=== PATIENT | female | born 1960 | race American Indian/Alaskan Native ===

== ENCOUNTER 2021-02-02 07:45 | Inpatient (IN) | payer SELFPAY ==
[2021-02-02] MEDS ORDERED: VANCOMYCIN 1,000 MG in SODIUM CHLORIDE 0.9% 500 ML 500 ML IV ONE (07:54)
--- NOTE | 2021-02-02 07:54 | Emergency Department Report ---
ED Fever HPI - General Chief Complaint: Dyspnea/Respdistress Stated Complaint: WEAKNESS, SOB PUI?: Yes Time Seen by Provider: 02/02/21 07:51 Source: patient Exam Limitations: no limitations - History of Present Illness Initial Comments: Chief complaint: Fever shortness of breath weakness HPI: This 60-year-old female with history of insulin-dependent diabetes who presents with fever shortness of breath and weakness for several days. Recently discharged from [facility]. She was hospitalized for kidney infection. History limited due to language barrier. History obtained from EMS. Fever 101 Fahrenheit per EMS. Patient was tachycardic 150s to 160s sinus rhythm according to EMS report. Timing/Duration: other (Has been sick for 2 weeks recently hospitalized) Fever Severity/Quality: greater than 100.5 F ED Review of Systems ROS: Stated complaint: WEAKNESS, SOB Other details as noted in HPI Comment: Unobtainable due to pts medical conditions (History limited due to language barrier) ED Past Medical Hx - Past Medical History Previous Medical History?: Yes Hx Diabetes: Yes - Surgical History Additional Surgical History: Unable to obtain due to language barrier - Social History Smoking Status: Never Smoker Substance Use Type: None - Medications Home Medications: Home Medications Medication Instructions Recorded Confirmed Last Taken Type Ferrous Sulfate [Slow Release Iron 250 mg PO BID 02/02/21 02/02/21 Unknown History 250 MG] Gabapentin [Neurontin] 100 mg PO BID 02/02/21 02/02/21 Unknown History ED Physical Exam - General General appearance: alert, in no apparent distress - Head Head exam: Present: atraumatic, normocephalic - Eye Eye exam: Present: normal appearance - ENT ENT exam: Present: mucous membranes moist - Neck Neck exam: Present: normal inspection, full ROM - Respiratory Respiratory exam: Present: normal lung sounds bilaterally. Absent: respiratory distress, wheezes, rales, rhonchi - Cardiovascular Cardiovascular Exam: Present: normal rhythm, tachycardia, normal heart sounds. Absent: systolic murmur, diastolic murmur, rubs, gallop - GI/Abdominal GI/Abdominal exam: Present: soft, normal bowel sounds. Absent: distended, tenderness, guarding, rebound - Rectal Rectal exam: Present: normal inspection, normal rectal tone, heme (-) stool, other (Brown stool no gross blood) - Extremities Exam Extremities exam: Present: normal inspection - Back Exam Back exam: Present: normal inspection - Neurological Exam Neurological exam: Present: alert - Psychiatric Psychiatric exam: Present: normal affect, normal mood - Skin Skin exam: Present: warm, dry, intact, normal color. Absent: rash ED Course Vital Signs 02/02/21 02/02/21 02/02/21 07:57 08:01 08:06 Temperature 101.3 F H Pulse Rate 144 H Respiratory 45 H Rate Blood Pressure 122/55 131/54 O2 Sat by Pulse 97 100 Oximetry 02/02/21 02/02/21 02/02/21 08:15 08:31 08:45 Temperature Pulse Rate 143 H 136 H 133 H Respiratory 22 44 H 39 H Rate Blood Pressure 116/60 126/61 125/62 O2 Sat by Pulse 97 98 97 Oximetry 02/02/21 02/02/21 02/02/21 09:01 09:15 09:30 Temperature Pulse Rate 133 H 135 H 135 H Respiratory 37 H 35 H 50 H Rate Blood Pressure 130/58 134/61 125/59 O2 Sat by Pulse 96 97 97 Oximetry 02/02/21 02/02/21 02/02/21 09:45 10:00 11:09 Temperature Pulse Rate 131 H 135 H 133 H Respiratory 44 H 33 H 32 H Rate Blood Pressure 122/57 129/60 129/60 O2 Sat by Pulse 96 98 98 Oximetry 02/02/21 02/02/21 02/02/21 11:15 11:30 11:45 Temperature Pulse Rate 130 H 136 H 130 H Respiratory 42 H 24 26 H Rate Blood Pressure 121/61 116/57 128/65 O2 Sat by Pulse 98 100 98 Oximetry 02/02/21 12:00 Temperature Pulse Rate 134 H Respiratory 44 H Rate Blood Pressure 126/100 O2 Sat by Pulse 98 Oximetry ED Medical Decision Making - Lab Data Result diagrams: 02/02/21 08:00 02/02/21 08:00 Laboratory Results - last 24 hr 02/02/21 02/02/21 02/02/21 08:00 08:00 08:00 WBC 6.7 RBC 2.30 L Hgb 5.7 L* Hct 17.9 L* MCV 78 L MCH 25 L MCHC 32 RDW 19.8 H Plt Count 155 Add Manual Diff Complete Total Counted 100 Seg Neuts % (Manual) 70.0 Band Neutrophils % 9.0 Lymphocytes % (Manual) 17.0 Monocytes % (Manual) 3.0 Metamyelocytes % 1.0 Nucleated RBC % Not Reportable Seg Neutrophils # Man 4.7 Band Neutrophils # 0.6 Lymphocytes # (Manual) 1.1 L Abs React Lymphs (Man) 0.0 Monocytes # (Manual) 0.2 Eosinophils # (Manual) 0.0 Basophils # (Manual) 0.0 Metamyelocytes # 0.1 Myelocytes # 0.0 Promyelocytes # 0.0 Blast Cells # 0.0 WBC Morphology Not Reportable Hypersegmented Neuts Not Reportable Hyposegmented Neuts Not Reportable Hypogranular Neuts Not Reportable Smudge Cells Not Reportable Toxic Granulation Not Reportable Toxic Vacuolation Not Reportable Dohle Bodies Not Reportable Pelger-Huet Anomaly Not Reportable Soham Rods Not Reportable Platelet Estimate Consistent w auto Clumped Platelets Not Reportable Plt Clumps, EDTA Not Reportable Large Platelets Not Reportable Giant Platelets Not Reportable Platelet Satelliting Not Reportable Plt Morphology Comment Not Reportable RBC Morphology Not Reportable Dimorphic RBCs Not Reportable Polychromasia Not Reportable Hypochromasia 1+ Poikilocytosis Not Reportable Anisocytosis 1+ Microcytosis Not Reportable Macrocytosis Not Reportable Spherocytes Not Reportable Pappenheimer Bodies Not Reportable Sickle Cells Not Reportable Target Cells Not Reportable Tear Drop Cells 1+ Ovalocytes Not Reportable Helmet Cells Not Reportable Garcia-[place] Bodies Not Reportable [place] Rings Not Reportable [place]ahomy Cells Not Reportable Bite Cells Not Reportable Crenated Cell Not Reportable Elliptocytes Not Reportable Acanthocytes (Spur) Not Reportable Rouleaux Not Reportable Hemoglobin C Crystals Not Reportable Schistocytes Not Reportable Malaria parasites Not Reportable John Bodies Not Reportable Hem Pathologist Commnt No D-Dimer VBG pH Sodium 135 L Potassium 4.2 Chloride 95.0 L Carbon Dioxide 18 L Anion Gap 26 BUN 15 Creatinine 0.9 Estimated GFR > 60 BUN/Creatinine Ratio 17 Glucose 419 H Lactic Acid 3.00 H* Calcium 8.4 Phosphorus Magnesium Ferritin Total Bilirubin 1.20 AST 32 ALT 9 Alkaline Phosphatase 228 H Lactate Dehydrogenase C-Reactive Protein Total Protein 7.3 Albumin 3.2 L Albumin/Globulin Ratio 0.8 Urine Color Urine Turbidity Urine pH Ur Specific Rainbow Urine Protein Urine Glucose (UA) Urine Ketones Urine Blood Urine Nitrite Urine Bilirubin Urine Urobilinogen Ur Leukocyte Esterase Urine WBC (Auto) Urine RBC (Auto) U Epithel Cells (Auto) Urine Mucus 02/02/21 02/02/21 02/02/21 08:00 08:00 08:00 WBC RBC Hgb Hct MCV MCH MCHC RDW Plt Count Add Manual Diff Total Counted Seg Neuts % (Manual) Band Neutrophils % Lymphocytes % (Manual) Monocytes % (Manual) Metamyelocytes % Nucleated RBC % Seg Neutrophils # Man Band Neutrophils # Lymphocytes # (Manual) Abs React Lymphs (Man) Monocytes # (Manual) Eosinophils # (Manual) Basophils # (Manual) Metamyelocytes # Myelocytes # Promyelocytes # Blast Cells # WBC Morphology Hypersegmented Neuts Hyposegmented Neuts Hypogranular Neuts Smudge Cells Toxic Granulation Toxic Vacuolation Dohle Bodies Pelger-Huet Anomaly Soham Rods Platelet Estimate Clumped Platelets Plt Clumps, EDTA Large Platelets Giant Platelets Platelet Satelliting Plt Morphology Comment RBC Morphology Dimorphic RBCs Polychromasia Hypochromasia Poikilocytosis Anisocytosis Microcytosis Macrocytosis Spherocytes Pappenheimer Bodies Sickle Cells Target Cells Tear Drop Cells Ovalocytes Helmet Cells Garcia-[place] Bodies [place] Rings [place] Cells Bite Cells Crenated Cell Elliptocytes Acanthocytes (Spur) Rouleaux Hemoglobin C Crystals Schistocytes Malaria parasites John Bodies Hem Pathologist Commnt D-Dimer > 80322 H VBG pH Sodium Potassium Chloride Carbon Dioxide Anion Gap BUN Creatinine Estimated GFR BUN/Creatinine Ratio Glucose 424 H Lactic Acid Calcium Phosphorus Magnesium Ferritin 65464.0 H Total Bilirubin AST ALT Alkaline Phosphatase Lactate Dehydrogenase 2476 H C-Reactive Protein 34.90 H Total Protein Albumin Albumin/Globulin Ratio Urine Color Urine Turbidity Urine pH Ur Specific Rainbow Urine Protein Urine Glucose (UA) Urine Ketones Urine Blood Urine Nitrite Urine Bilirubin Urine Urobilinogen Ur Leukocyte Esterase Urine WBC (Auto) Urine RBC (Auto) U Epithel Cells (Auto) Urine Mucus 02/02/21 02/02/21 02/02/21 08:00 08:00 11:01 WBC RBC Hgb Hct MCV MCH MCHC RDW Plt Count Add Manual Diff Total Counted Seg Neuts % (Manual) Band Neutrophils % Lymphocytes % (Manual) Monocytes % (Manual) Metamyelocytes % Nucleated RBC % Seg Neutrophils # Man Band Neutrophils # Lymphocytes # (Manual) Abs React Lymphs (Man) Monocytes # (Manual) Eosinophils # (Manual) Basophils # (Manual) Metamyelocytes # Myelocytes # Promyelocytes # Blast Cells # WBC Morphology Hypersegmented Neuts Hyposegmented Neuts Hypogranular Neuts Smudge Cells Toxic Granulation Toxic Vacuolation Dohle Bodies Pelger-Huet Anomaly Soham Rods Platelet Estimate Clumped Platelets Plt Clumps, EDTA Large Platelets Giant Platelets Platelet Satelliting Plt Morphology Comment RBC Morphology Dimorphic RBCs Polychromasia Hypochromasia Poikilocytosis Anisocytosis Microcytosis Macrocytosis Spherocytes Pappenheimer Bodies Sickle Cells Target Cells Tear Drop Cells Ovalocytes Helmet Cells Garcia-[place] Bodies [place] Rings [place] Cells Bite Cells Crenated Cell Elliptocytes Acanthocytes (Spur) Rouleaux Hemoglobin C Crystals Schistocytes Malaria parasites John Bodies Hem Pathologist Commnt D-Dimer VBG pH 7.436 H Sodium Potassium Chloride Carbon Dioxide Anion Gap BUN Creatinine Estimated GFR BUN/Creatinine Ratio Glucose Lactic Acid 2.40 H* Calcium Phosphorus 3.80 Magnesium 1.60 L Ferritin Total Bilirubin AST ALT Alkaline Phosphatase Lactate Dehydrogenase C-Reactive Protein Total Protein Albumin Albumin/Globulin Ratio Urine Color Urine Turbidity Urine pH Ur Specific Rainbow Urine Protein Urine Glucose (UA) Urine Ketones Urine Blood Urine Nitrite Urine Bilirubin Urine Urobilinogen Ur Leukocyte Esterase Urine WBC (Auto) Urine RBC (Auto) U Epithel Cells (Auto) Urine Mucus 02/02/21 Unknown WBC RBC Hgb Hct MCV MCH MCHC RDW Plt Count Add Manual Diff Total Counted Seg Neuts % (Manual) Band Neutrophils % Lymphocytes % (Manual) Monocytes % (Manual) Metamyelocytes % Nucleated RBC % Seg Neutrophils # Man Band Neutrophils # Lymphocytes # (Manual) Abs React Lymphs (Man) Monocytes # (Manual) Eosinophils # (Manual) Basophils # (Manual) Metamyelocytes # Myelocytes # Promyelocytes # Blast Cells # WBC Morphology Hypersegmented Neuts Hyposegmented Neuts Hypogranular Neuts Smudge Cells Toxic Granulation Toxic Vacuolation Dohle Bodies Pelger-Huet Anomaly Soham Rods Platelet Estimate Clumped Platelets Plt Clumps, EDTA Large Platelets Giant Platelets Platelet Satelliting Plt Morphology Comment RBC Morphology Dimorphic RBCs Polychromasia Hypochromasia Poikilocytosis Anisocytosis Microcytosis Macrocytosis Spherocytes Pappenheimer Bodies Sickle Cells Target Cells Tear Drop Cells Ovalocytes Helmet Cells Garcia-[place] Bodies [place] Rings [place] Cells Bite Cells Crenated Cell Elliptocytes Acanthocytes (Spur) Rouleaux Hemoglobin C Crystals Schistocytes Malaria parasites John Bodies Hem Pathologist Commnt D-Dimer VBG pH Sodium Potassium Chloride Carbon Dioxide Anion Gap BUN Creatinine Estimated GFR BUN/Creatinine Ratio Glucose Lactic Acid Calcium Phosphorus Magnesium Ferritin Total Bilirubin AST ALT Alkaline Phosphatase Lactate Dehydrogenase C-Reactive Protein Total Protein Albumin Albumin/Globulin Ratio Urine Color Yellow Urine Turbidity Clear Urine pH 5.0 Ur Specific Rainbow 1.018 Urine Protein 30 mg/dl Urine Glucose (UA) 150 Urine Ketones Neg Urine Blood Sm Urine Nitrite Neg Urine Bilirubin Neg Urine Urobilinogen < 2.0 Ur Leukocyte Esterase Neg Urine WBC (Auto) 5.0 Urine RBC (Auto) 3.0 U Epithel Cells (Auto) < 1.0 Urine Mucus Few - EKG Data 02/02/21 08:02 g EMS EKG Obtained 07 Interpreted by ia Sinus tachycardia rate 150 bpm normal axis normal intervals no ST elevation - Radiology Data Radiology results: report reviewed Patient Name: MELINDA BEE Gender: Female Date of : 1960 Home Phone: Referring Provider: ODESSA SCHUSTER Organization: [facility] Accession Number: [id number] Requested Date: February 02, 2021 07:51 Report Status: Final Requested Procedure: 1 Procedure Description: XR chest 1V ap Modality: XR Findings Reporting MD: John Hester Dictation Time: February 02, 2021 07:30 Head Of Geography: Not available Spring Machine Operator Date: CHEST 1 VIEW INDICATION: fever shortness of breath. COMPARISON: None FINDINGS: SUPPORT DEVICES: None. HEART: Within normal limits. LUNGS/PLEURA: Minimal streaky left basilar/retrocardiac airspace disease with otherwise clear lungs. ADDITIONAL FINDINGS: None. IMPRESSION: 1. Lung findings as above. Signer Name: John Hester MD Signed: 02/02/2021 7:30 AM Workstation Name: [id number] Patient Name: MELINDA BEE Gender: Female Date of : 1960 Home Phone: Referring Provider: ODESSA SCHUSTER Organization: [facility] Accession Number: [id number] Requested Date: February 02, 2021 09:51 Report Status: Final Requested Procedure: 1 Procedure Description: CT angio chest Modality: CT Findings Reporting MD: John Hester Dictation Time: February 02, 2021 12:09 Head Of Geography: Not available Spring Machine Operator Date: CTA chest with contrast INDICATION : Hypoxia elevated D-dimer OMNIPAQUE 350 100ML . TECHNIQUE: Axial imaging performed through the chest, with contrast bolus timing set to maximize opacification of the pulmonary arteries. 3-plane MIP reformatted images were obtained. All CT scans at this location are performed using CT dose reduction for ALARA by means of automated exposure control. 100 mL of intravenous contrast administered. COMPARISON: None FINDINGS: Bolus/PTE: Contrast bolus timing is suboptimal and there is considerable respiratory motion artifact in the lung bases. The subsegmental distribution is not well evaluated. No obvious central PTE identified. Heart and great vessels appear normal. No pathologic adenopathy. Mediastinum: Heart and great vessels appear normal. No pathologic mediastinal adenopathy. Lungs: There is mild streaky left greater than right basilar airspace disease. Upper abdomen: Limited imaging of the upper abdomen shows nothing acute. Bones: There are moderately advanced degenerative changes in the spine with nothing acute. IMPRESSION: 1. Limited exam as outlined above with no obvious central PTE. The segmental and subsegmental distribution are not well evaluated. 2. Mild streaky bibasilar airspace disease. Signer Name: John Hester MD Signed: 02/02/2021 12:09 PM Workstation Name: [id number] - Medical Decision Making Healthcare history pneumonia, sepsis, suspected COVID-19 infection. Urinalysis negative for infection. Admitted to hospital service in fair condition. Significant anemia present. Hemoccult negative stool Critical care attestation.: If time is entered above; I have spent that time in minutes in the direct care of this critically ill patient, excluding procedure time. ED Disposition Clinical Impression: Hospital-acquired pneumonia, Suspected COVID-19 virus infection, Anemia, Sepsis Disposition: ADMITTED INPATIENT Is pt being admited?: Yes Does the pt Need Aspirin: No Condition: Fair Instructions: Bacterial Pneumonia (ED)
[2021-02-02] MEDS ORDERED: VANCOMYCIN PHARMACY TO DOSE IV SCH (08:00)
--- NOTE | 2021-02-02 08:35 | XRay Report ---
CHEST 1 VIEW INDICATION: fever shortness of breath. COMPARISON: None FINDINGS: SUPPORT DEVICES: None. HEART: Within normal limits. LUNGS/PLEURA: Minimal streaky left basilar/retrocardiac airspace disease with otherwise clear lungs. ADDITIONAL FINDINGS: None. IMPRESSION: 1. Lung findings as above. Signer Name: John Hester MD Signed: 02/02/2021 8:30 AM Workstation Name: [id number]
[2021-02-02 08:48] LABS: Mean Corpuscular HGB Conc 32 % (30-34); Mean Corpuscular Volume 78 fl (79-97); Platelet Count 155 K/mm3 (140-440); Red Cell Distribution Width 19.8 % (13.2-15.2)
[2021-02-02 08:55] LABS: Hematocrit 17.9 % (30.3-42.9); Hemoglobin 5.7 gm/dl (10.1-14.3)
[2021-02-02] MEDS ORDERED: SODIUM CHLORIDE 0.9% 1000 ML 1,000 ML IV ONE ×2 (09:00→09:51)
[2021-02-02] MEDS ORDERED: VANCOMYCIN 2,000 MG in SODIUM CHLORIDE 0.9% 500 ML 500 ML IV ONE (09:00)
[2021-02-02] MEDS ORDERED: CEFEPIME/NS 2 GM/100 ML 2 GM/100 ML BAG IV ONE (09:00)
[2021-02-02 09:33] LABS: Alanine Aminotransferase 9 units/L (7-56); Albumin 3.2 g/dL (3.9-5); BUN/Creatinine Ratio 17; Blood Urea Nitrogen 15 mg/dL (7-17); Calcium 8.4 mg/dL (8.4-10.2); Hemolysis Index 0
[2021-02-02 09:34] LABS: C-Reactive Protein 34.9 mg/dL (0.00-1.30)
[2021-02-02 12:14] LABS: Anisocytosis 1+; Band Neutrophils # (Manual) 0.6 K/mm3; Hypochromasia 1+; Platelet Estimate Consistent w Auto; Tear Drop Cells 1+; Total Cells Counted 100
--- NOTE | 2021-02-02 13:13 | Cat Scan Report ---
CTA chest with contrast INDICATION : Hypoxia elevated D-dimer OMNIPAQUE 350 100ML . TECHNIQUE: Axial imaging performed through the chest, with contrast bolus timing set to maximize opa cification of the pulmonary arteries. 3-plane MIP reformatted images were obtained. All CT scans at this location are performed using CT dose reduction for ALARA by means of automated exposure control. 100 mL of intravenous contrast administered. COMPARISON: None FINDINGS: Bolus/PTE: Contrast bolus timing is suboptimal and there is considerable respiratory motion artifact in the lung bases. The subsegmental distribution is not well evaluated. No obvious central PTE ident ified. Heart and great vessels appear normal. No pathologic adenopathy. Mediastinum: Heart and great vessels appear normal. No pathologic mediastinal adenopathy. Lungs: There is mild streaky left greater than right basilar airspace disease. Upper abdomen: Limited imaging of the upper abdomen shows nothing acute. Bones: There are moderately advanced degenerative changes in the spine with nothing acute. IMPRESSION: 1. Limited exam as outlined above with no obvious central PTE. The segmental and subsegmental distrib ution are not well evaluated. 2. Mild streaky bibasilar airspace disease. Signer Name: John Hester MD Signed: 02/02/2021 1:09 PM Workstation Name: [id number]
[2021-02-02 13:41] LABS: Bilirubin,Urine NEG (Negative); Blood,Urine SM (Negative); Color,Urine Yellow (Yellow); Mucus,Urine FEW /HPF; Urobilinogen,Urine < 2.0 mg/dL (<2.0)
[2021-02-02] MEDS ORDERED: ACETAMINOPHEN 325 MG TAB PO PRN (21:04)
[2021-02-02] MEDS ORDERED: ONDANSETRON 4 MG/2 ML INJ IV PRN (21:04)
[2021-02-02] MEDS ORDERED: oxyCODONE /ACETAMINOPHEN 5-325MG TAB PO PRN (21:05)
[2021-02-02] MEDS ORDERED: METOCLOPRAMIDE 10 MG/2 ML INJ IV PRN (21:05)
[2021-02-02] MEDS ORDERED: IPRATROPIUM/ALBUTEROL SULFATE 3 ML AMPUL.NEB IH PRN (21:08)
--- NOTE | 2021-02-02 21:14 | History and Physical Report ---
History of Present Illness Date of examination: 02/02/21 Date of admission: 02/02/21 12:41 Chief complaint: Fever and shortness of breath off-and-on for 2 weeks History of present illness: 60-year-old female with history of diabetes presents with cough intermittent f ever and shortness of breath and weakness for 2 weeks. Patient was discharged from [facility] recently. Patient was apparently admitted for urinary tract infection. When EMS arrived fever was higher than 1 and patient was tachycardic with a heart rate of 150s to 160s. Comfortable color sputum. Shortness of breath is intermittent. Patient is not Covid vaccinated. Language barrier present. No chest pain. No loss of taste or smell. In the emergency room patient fever of 100.7. Patient has past medical history significant for GERD anemia and peripheral neuropathy no nausea or vomiting. No hematemesis or melanotic stools. - Past Medical History Previous Medical History?: Yes Hx Diabetes: Yes - Surgical History Additional Surgical History: Unable to obtain due to language barrier - Social History Smoking Status: Never Smoker Substance Use Type: None - Medications Home Medications: Home Medications Medication Instructions Recorded Confirmed Last Taken Type Ferrous Sulfate [Slow Release Iron 250 mg PO BID 02/02/21 02/02/21 Unknown History 250 MG] Gabapentin [Neurontin] 100 mg PO BID 02/02/21 02/02/21 Unknown History Review of Systems ROS: Constitutional no weight loss or weight gain no fever or chills HEENT no sore throat no post nasal drip no diplopia Neck no neck stiffness no lymph gland enlargement Chest and lungs fever cough and shortness of breath for 2 weeks CVS no chest pain no diaphoresis no palpitations GI no nausea no vomiting no diarrhea Genitourinary system no dysuria no flank pain Musculoskeletal system no muscle pains no joint pains [employer] no syncope no seizures Skin no rash no itching Psychiatric no depression no homicidal or suicidal tendencies Hematologic no lymphedema or bruising Endocrine no polydipsia no polyuria no cold intolerance no heat intolerance Medications and Allergies Allergies Allergy/AdvReac Type Severity Reaction Status Date / Time No Known Allergies Allergy Unverified 02/02/21 08:26 Home Medications Medication Instructions Recorded Confirmed Last Taken Type Ferrous Sulfate [Slow Release Iron 250 mg PO BID 02/02/21 02/02/21 Unknown History 250 MG] Gabapentin [Neurontin] 100 mg PO BID 02/02/21 02/02/21 Unknown History Sucralfate [Carafate] 1 gm PO ACHS 02/02/21 02/02/21 Unknown History Active Meds: Active Medications Acetaminophen (Acetaminophen 325 Mg Tab) 650 mg PO Q4H PRN PRN Reason: Pain MILD(1-3)/Fever >100.5/GOLDMAN Albuterol/Ipratropium (Ipratropium/Albuterol Sulfate 3 Ml Ampul.Neb) 1 ampul IH Q3H PRN PRN Reason: Wheezing Albuterol/Ipratropium (Ipratropium/Albuterol Sulfate 3 Ml Ampul.Neb) 1 ampul IH QIDRT MARY LOU Dexamethasone (Dexamethasone 4 Mg/Ml Vial) 8 mg IV Q24H MARY LOU Famotidine (Famotidine 20 Mg/2 Ml Inj) 20 mg IV BID MARY LOU Gabapentin (Gabapentin 100 Mg Cap) 100 mg PO BID [facility] Heparin Sodium (Porcine) (Heparin 5,000 Unit/1 Ml Vial) 5,000 unit SUB-Q Q12HR [facility] Sodium Chloride (Nacl 0.9% 1000 Ml) 1,000 mls @ 100 mls/hr IV DIRECT MARY LOU Stop: 02/03/21 08:00 Ceftriaxone Sodium (Rocephin/Ns 2 Gm/100 Ml) 2 gm in 100 mls @ 200 mls/hr IV Q24HR MARY LOU; Protocol Azithromycin (Zithromax/Ns) 500 mg in 250 mls @ 250 mls/hr IV Q24H [facility] Metoclopramide HCl (Metoclopramide 10 Mg/2 Ml Inj) 10 mg IV Q6H PRN PRN Reason: Nausea And Vomiting Ondansetron HCl (Ondansetron 4 Mg/2 Ml Inj) 4 mg IV Q3H PRN PRN Reason: Nausea And Vomiting Oxycodone/Acetaminophen (Oxycodone /Acetaminophen 5-325mg Tab) 1 tab PO Q6H PRN PRN Reason: Pain, Moderate (4-6) Sodium Chloride (Sodium Chloride 0.9% 10 Ml Flush Syringe) 10 ml IV BID MARY LOU Sodium Chloride (Sodium Chloride 0.9% 10 Ml Flush Syringe) 10 ml IV PRN PRN PRN Reason: LINE FLUSH Sucralfate (Sucralfate 1 Gm Tab) 1 gm PO [facility] Exam - Constitutional Vitals: Temp Pulse Resp BP Pulse Ox 99.1 F 134 H 18 126/61 99 02/02/21 17:10 02/02/21 17:10 02/02/21 17:10 02/02/21 17:10 02/02/21 17:10 General appearance: Present: mild distress, well-nourished - EENT Eyes: Present: PERRL ENT: hearing intact, clear oral mucosa - Neck Neck: Present: supple, normal ROM - Respiratory Respiratory effort: normal Respiratory: bilateral: CTA, rhonchi (Scattered) - Cardiovascular Heart rate: 78 Rhythm: regular Heart Sounds: Present: S1 & S2. Absent: rub, click - Extremities Extremities: no ischemia, pulses intact, pulses symmetrical, No edema Peripheral Pulses: within normal limits - Abdominal General gastrointestinal: Present: soft, non-tender, non-distended, normal bowel sounds Female genitourinary: Present: normal - Integumentary Integumentary: Present: clear, warm, dry - Musculoskeletal Musculoskeletal: gait normal, strength equal bilaterally - Psychiatric Psychiatric: appropriate mood/affect, intact judgment & insight - Neurologic Neurologic: CNII-XII intact, moves all extremities - Allied Health Allied health notes reviewed: nursing, case management Results - Labs CBC & Chem 7: 02/02/21 08:00 02/02/21 08:00 Labs: Laboratory Last Values WBC 6.7 K/mm3 (4.5-11.0) 02/02/21 08:00 RBC 2.30 M/mm3 (3.65-5.03) L 02/02/21 08:00 Hgb 5.7 gm/dl (10.1-14.3) L* 02/02/21 08:00 Hct 17.9 % (30.3-42.9) L* 02/02/21 08:00 MCV 78 fl (79-97) L 02/02/21 08:00 MCH 25 pg (28-32) L 02/02/21 08:00 MCHC 32 % (30-34) 02/02/21 08:00 RDW 19.8 % (13.2-15.2) H 02/02/21 08:00 Plt Count 155 K/mm3 (140-440) 02/02/21 08:00 Add Manual Diff Complete 02/02/21 08:00 Total Counted 100 02/02/21 08:00 Seg Neuts % (Manual) 70.0 % (40.0-70.0) 02/02/21 08:00 Band Neutrophils % 9.0 % 02/02/21 08:00 Lymphocytes % (Manual) 17.0 % (13.4-35.0) 02/02/21 08:00 Monocytes % (Manual) 3.0 % (0.0-7.3) 02/02/21 08:00 Metamyelocytes % 1.0 % 02/02/21 08:00 Nucleated RBC % Not Reportable 02/02/21 08:00 Seg Neutrophils # Man 4.7 K/mm3 (1.8-7.7) 02/02/21 08:00 Band Neutrophils # 0.6 K/mm3 02/02/21 08:00 Lymphocytes # (Manual) 1.1 K/mm3 (1.2-5.4) L 02/02/21 08:00 Abs React Lymphs (Man) 0.0 K/mm3 02/02/21 08:00 Monocytes # (Manual) 0.2 K/mm3 (0.0-0.8) 02/02/21 08:00 Eosinophils # (Manual) 0.0 K/mm3 (0.0-0.4) 02/02/21 08:00 Basophils # (Manual) 0.0 K/mm3 (0.0-0.1) 02/02/21 08:00 Metamyelocytes # 0.1 K/mm3 02/02/21 08:00 Myelocytes # 0.0 K/mm3 02/02/21 08:00 Promyelocytes # 0.0 K/mm3 02/02/21 08:00 Blast Cells # 0.0 K/mm3 02/02/21 08:00 WBC Morphology Not Reportable 02/02/21 08:00 Hypersegmented Neuts Not Reportable 02/02/21 08:00 Hyposegmented Neuts Not Reportable 02/02/21 08:00 Hypogranular Neuts Not Reportable 02/02/21 08:00 Smudge Cells Not Reportable 02/02/21 08:00 Toxic Granulation Not Reportable 02/02/21 08:00 Toxic Vacuolation Not Reportable 02/02/21 08:00 Dohle Bodies Not Reportable 02/02/21 08:00 Pelger-Huet Anomaly Not Reportable 02/02/21 08:00 Soham Rods Not Reportable 02/02/21 08:00 Platelet Estimate Consistent w auto 02/02/21 08:00 Clumped Platelets Not Reportable 02/02/21 08:00 Plt Clumps, EDTA Not Reportable 02/02/21 08:00 Large Platelets Not Reportable 02/02/21 08:00 Giant Platelets Not Reportable 02/02/21 08:00 Platelet Satelliting Not Reportable 02/02/21 08:00 Plt Morphology Comment Not Reportable 02/02/21 08:00 RBC Morphology Not Reportable 02/02/21 08:00 Dimorphic RBCs Not Reportable 02/02/21 08:00 Polychromasia Not Reportable 02/02/21 08:00 Hypochromasia 1+ 02/02/21 08:00 Poikilocytosis Not Reportable 02/02/21 08:00 Anisocytosis 1+ 02/02/21 08:00 Microcytosis Not Reportable 02/02/21 08:00 Macrocytosis Not Reportable 02/02/21 08:00 Spherocytes Not Reportable 02/02/21 08:00 Pappenheimer Bodies Not Reportable 02/02/21 08:00 Sickle Cells Not Reportable 02/02/21 08:00 Target Cells Not Reportable 02/02/21 08:00 Tear Drop Cells 1+ 02/02/21 08:00 Ovalocytes Not Reportable 02/02/21 08:00 Helmet Cells Not Reportable 02/02/21 08:00 [place] Bodies Not Reportable 02/02/21 08:00 [place] Rings Not Reportable 02/02/21 08:00 Nahomy Cells Not Reportable 02/02/21 08:00 Bite Cells Not Reportable 02/02/21 08:00 Crenated Cell Not Reportable 02/02/21 08:00 Elliptocytes Not Reportable 02/02/21 08:00 Acanthocytes (Spur) Not Reportable 02/02/21 08:00 Rouleaux Not Reportable 02/02/21 08:00 Hemoglobin C Crystals Not Reportable 02/02/21 08:00 Schistocytes Not Reportable 02/02/21 08:00 Malaria parasites Not Reportable 02/02/21 08:00 John Bodies Not Reportable 02/02/21 08:00 Hem Pathologist Commnt No 02/02/21 08:00 D-Dimer > 66557 ng/mlDDU (0-234) H 02/02/21 08:00 VBG pH 7.436 (7.320-7.420) H 02/02/21 08:00 Sodium 135 mmol/L (137-145) L 02/02/21 08:00 Potassium 4.2 mmol/L (3.6-5.0) 02/02/21 08:00 Chloride 95.0 mmol/L (98-107) L 02/02/21 08:00 Carbon Dioxide 18 mmol/L (22-30) L 02/02/21 08:00 Anion Gap 26 mmol/L 02/02/21 08:00 BUN 15 mg/dL (7-17) 02/02/21 08:00 Creatinine 0.9 mg/dL (0.6-1.2) 02/02/21 08:00 Estimated GFR > 60 ml/min 02/02/21 08:00 BUN/Creatinine Ratio 17 % 02/02/21 08:00 Glucose 419 mg/dL (65-100) H 02/02/21 08:00 Glucose 424 mg/dL (65-100) H 02/02/21 08:00 POC Glucose 189 mg/dL (70-105) H 02/02/21 16:21 Lactic Acid 1.80 mmol/L (0.7-2.0) 02/02/21 14:07 Calcium 8.4 mg/dL (8.4-10.2) 02/02/21 08:00 Phosphorus 3.80 mg/dL (2.5-4.5) 02/02/21 08:00 Magnesium 1.60 mg/dL (1.7-2.3) L 02/02/21 08:00 Ferritin 44571.0 ng/mL (10.0-200.0) H 02/02/21 08:00 Total Bilirubin 1.20 mg/dL (0.1-1.2) 02/02/21 08:00 AST 32 units/L (5-40) 02/02/21 08:00 ALT 9 units/L (7-56) 02/02/21 08:00 Alkaline Phosphatase 228 units/L (35-129) H 02/02/21 08:00 Lactate Dehydrogenase 2476 units/L (91-180) H 02/02/21 08:00 C-Reactive Protein 34.90 mg/dL (0.00-1.30) H 02/02/21 08:00 Total Protein 7.3 g/dL (6.3-8.2) 02/02/21 08:00 Albumin 3.2 g/dL (3.9-5) L 02/02/21 08:00 Albumin/Globulin Ratio 0.8 % 02/02/21 08:00 Procalcitonin 20.88 ng/mL (<0.15) 02/02/21 08:00 Urine Color Yellow (Yellow) 02/02/21 Unknown Urine Turbidity Clear (Clear) 02/02/21 Unknown Urine pH 5.0 (5.0-7.0) 02/02/21 Unknown Ur Specific [place] 1.018 (1.003-1.030) 02/02/21 Unknown Urine Protein 30 mg/dl mg/dL (Negative) 02/02/21 Unknown Urine Glucose (UA) 150 mg/dL (Negative) 02/02/21 Unknown Urine Ketones Neg mg/dL (Negative) 02/02/21 Unknown Urine Blood Sm (Negative) 02/02/21 Unknown Urine Nitrite Neg (Negative) 02/02/21 Unknown Urine Bilirubin Neg (Negative) 02/02/21 Unknown Urine Urobilinogen < 2.0 mg/dL (<2.0) 02/02/21 Unknown Ur Leukocyte Esterase Neg (Negative) 02/02/21 Unknown Urine WBC (Auto) 5.0 /HPF (0.0-6.0) 02/02/21 Unknown Urine RBC (Auto) 3.0 /HPF (0.0-6.0) 02/02/21 Unknown U Epithel Cells (Auto) < 1.0 /HPF (0-13.0) 02/02/21 Unknown Urine Mucus Few /HPF 02/02/21 Unknown Coronavirus (PCR) Negative (Negative) 02/02/21 Unknown Short CBC 02/02/21 Range/Units 08:00 WBC 6.7 (4.5-11.0) K/mm3 Hgb 5.7 L* (10.1-14.3) gm/dl Hct 17.9 L* (30.3-42.9) % Plt Count 155 (140-440) K/mm3 BMP 02/02/21 02/02/21 08:00 08:00 Sodium 135 L Potassium 4.2 Chloride 95.0 L Carbon Dioxide 18 L BUN 15 Creatinine 0.9 Glucose 419 H 424 H Calcium 8.4 Liver Function 02/02/21 Range/Units 08:00 Total Bilirubin 1.20 (0.1-1.2) mg/dL AST 32 (5-40) units/L ALT 9 (7-56) units/L Alkaline Phosphatase 228 H (35-129) units/L Albumin 3.2 L (3.9-5) g/dL Urine 02/02/21 Range/Units Unknown Urine Color Yellow (Yellow) Urine pH 5.0 (5.0-7.0) Ur Specific [place] 1.018 (1.003-1.030) Urine Protein 30 mg/dl (Negative) mg/dL Urine Glucose (UA) 150 (Negative) mg/dL Microbiology: Microbiology 02/02/21 08:00 Peripheral/Venous Blood Culture - Preliminary Culture in Progress 02/02/21 08:00 Peripheral/Venous Blood Culture - Preliminary Culture in Progress - Imaging and Cardiology Chest x-ray: report reviewed CT scan - chest: report reviewed Imaging and Cardiology: chest CT angiogram Limited exam as outlined above with no obvious central pulmonary thromboembolism. The segmental and subsegmental distribution are not well evaluated. Mild streaky bibasilar airspace disease Chest x-ray Minimal streaky left basilar/retrocardiac airspace disease with otherwise clear lungs Assessment and Plan Advance Directives: Yes (Full code) VTE prophylaxis?: Chemical Plan of care discussed with patient/family: Yes - Patient Problems (1) SIRS (systemic inflammatory response syndrome) Current Visit: Yes Status: Acute Plan to address problem: Patient has very high inflammatory markers in the form of D-dimer of more than 10,000 ferritin 17,843 LDH 2476 CRP 34.90 and lactic acid of 2.4 which is slightly high Pulmonary thromboembolism was ruled out by CT angiogram. Chest x-ray shows bilateral streaky pneumonia. (2) Bilateral pneumonia Current Visit: Yes Status: Acute Plan to address problem: Patient initiated on IV Zithromax and IV ceftriaxone. Patient has bilateral pneumonia Covid test to rule out coronavirus infection (3) Suspected COVID-19 virus infection Current Visit: Yes Status: Acute Plan to address problem: Coronavirus test PCR pending (4) Severe anemia Current Visit: Yes Status: Acute Plan to address problem: Etiology of anemia is unclear No hematemesis or melanotic stools Transfuse 1 to 2 units of packed red blood cells Anemia work-up in the form of iron studies and B12 and folic acid levels GI work-up (5) Uncontrolled diabetes mellitus Current Visit: Yes Status: Chronic Qualifiers: Diabetes mellitus type: type 2 Plan to address problem: Patient initiated on long-acting insulin and short-acting insulin before each meal along with insulin sliding scale coverage. Check hemoglobin A1c (6) DVT prophylaxis Current Visit: Yes Status: Acute Plan to address problem: On Lovenox and GI prophylaxis
[2021-02-02] MEDS ORDERED: SODIUM CHLORIDE 0.9% 500 ML 500 ML IV ONE (21:15)
[2021-02-02] MEDS ORDERED: SODIUM CHLORIDE 0.9% 1000 ML 1,000 ML IV SCH (21:15)
[2021-02-02] MEDS ORDERED: ALBUTEROL 2.5 MG/3 ML NEBU IH PRN (21:24)
[2021-02-02] MEDS: cefTRIAXone/NS 2 GM/100 ML 2 GM/100 ML BAG IV SCH (21:46)
[2021-02-02] MEDS: HEPARIN 5,000 UNIT/1 ML VIAL SUB-Q SCH (21:49)
[2021-02-02] MEDS: dexAMETHasone 4 MG/ML VIAL IV SCH (21:51)
[2021-02-02] MEDS: FAMOTIDINE 20 MG/2 ML INJ IV SCH (21:54)
[2021-02-02] MEDS: GABAPENTIN 100 MG CAP PO SCH (21:58)
[2021-02-02] MEDS: SUCRALFATE 1 GM TAB PO SCH (21:58)
[2021-02-02] MEDS: AZITHROMYCIN/NS 500 MG/250 ML 500 MG/250 ML BAG IV SCH (22:48)
[2021-02-03] MEDS: IPRATROPIUM/ALBUTEROL SULFATE 3 ML AMPUL.NEB IH SCH ×4 (07:51→21:07)
[2021-02-03] MEDS: SUCRALFATE 1 GM TAB PO SCH ×4 (09:33→21:28)
[2021-02-03] MEDS: HEPARIN 5,000 UNIT/1 ML VIAL SUB-Q SCH ×2 (09:33→21:29)
[2021-02-03] MEDS: FAMOTIDINE 20 MG/2 ML INJ IV SCH ×2 (09:33→21:30)
[2021-02-03] MEDS: GABAPENTIN 100 MG CAP PO SCH ×2 (09:33→21:28)
[2021-02-03 09:49] LABS: Hematocrit 26.8 % (30.3-42.9); Hemoglobin 8.6 gm/dl (10.1-14.3); Mean Corpuscular HGB Conc 32 % (30-34); Mean Corpuscular Volume 83 fl (79-97); Platelet Count 138 K/mm3 (140-440); Red Blood Count 3.22 M/mm3 (3.65-5.03); Red Cell Distribution Width 19.1 % (13.2-15.2)
[2021-02-03] MEDS: INSULIN LISPRO 100 UNIT/ML SUB-Q SCH ×4 (09:49→21:35)
--- NOTE | 2021-02-03 10:38 | Progress Note ---
Subjective Date of service: 02/03/21 Interval history: 60-year-old female with history of diabetes presents with cough intermittent fever and shortness of breath and weakness for 2 weeks. Patient was discharged from [facility] recently. Patient was apparently admitted for urinary tract infection. When EMS arrived fever was higher than 1 and patient was tachycardic with a heart rate of 150s to 160s. Comfortable color sputum. Shortness of breath is intermittent. Patient is not Covid vaccinated. Language barrier present. No chest pain. No loss of taste or smell. In the emergency room patient fever of 100.7. Patient has past medical history significant for GERD anemia and peripheral neuropathy no nausea or vomiting. No hematemesis or melanotic stools. 02/03 awake and alert. Offers no specific complaints. Feels a whole lot better after blood transfusion. She denies any headache or dizziness. Denies chest pain or shortness of breath denies nausea or abdominal pain. Denies melena. Denies using NSAIDs. lab results reviewed. 12 point review of systems is essentially unremarkable except as stated above in the history of present illness Assessment and plan Severe anemia Status post PRBC transfusion Posttransfusion hemoglobin is 8.6 Check stool for occult blood GI consulted/evaluation pending SIRS Inflammatory markers reviewed Tested negative for COVID-19 CTA chest negative for PE Chest x-ray reviewed We will check venous Doppler of lower extremities due to markedly elevated D- dimer We will discontinue Decadron as patient is not hypoxic Type 2 diabetes Check A1c Patient came from [facility] to [place] about 2 [place] ago States she has not taken any diabetes medicine since she came here Initiate insulin sliding scale coverage Fever/tachycardia/-trending down She has been afebrile since last night Heart rate has improved Chest x-ray reviewed CTA chest reviewed Unclear etiology Rule out viral syndrome We will request ID consult DVT prophylaxis Objective - Constitutional Vitals: Vital Signs - 12hr 02/02/21 02/03/21 02/03/21 22:55 01:16 02:40 Temperature 100.7 F H 99 F 98.5 F Pulse Rate 134 H 112 H Pulse Rate [ Anterior Bilateral Throughout] Respiratory 16 18 Rate Respiratory Rate [Anterior Bilateral Throughout] Blood Pressure 123/58 118/63 O2 Sat by Pulse 98 99 Oximetry 02/03/21 02/03/21 02/03/21 02:47 02:55 03:55 Temperature 98.5 F 98.3 F 97.5 F L Pulse Rate 112 H 111 H 106 H Pulse Rate [ Anterior Bilateral Throughout] Respiratory 18 17 16 Rate Respiratory Rate [Anterior Bilateral Throughout] Blood Pressure 104/57 111/65 109/71 O2 Sat by Pulse 99 99 96 Oximetry 02/03/21 02/03/21 02/03/21 04:01 04:25 05:24 Temperature 98.1 F 98.2 F 97.7 F Pulse Rate 103 H 100 H 99 H Pulse Rate [ Anterior Bilateral Throughout] Respiratory 16 18 16 Rate Respiratory Rate [Anterior Bilateral Throughout] Blood Pressure 127/65 124/69 105/63 O2 Sat by Pulse 96 100 99 Oximetry 02/03/21 02/03/21 02/03/21 05:33 05:48 07:51 Temperature 97.5 F L 97.6 F Pulse Rate 100 H 95 H Pulse Rate [ 97 H Anterior Bilateral Throughout] Respiratory 18 18 Rate Respiratory 18 Rate [Anterior Bilateral Throughout] Blood Pressure 119/63 110/58 O2 Sat by Pulse 98 98 Oximetry General appearance: Present: no acute distress - EENT Eyes: PERRL, EOM intact ENT: hearing intact, clear oral mucosa - Neck Neck: supple, normal ROM, no masses or JVD - Respiratory Respiratory effort: normal Respiratory: bilateral: CTA - Cardiovascular Rhythm: regular Heart Sounds: Present: S1 & S2 Extremities: No edema - Gastrointestinal General gastrointestinal: Present: soft, non-tender Rectal Exam: deferred - Integumentary Integumentary: clear - Musculoskeletal Musculoskeletal: strength equal bilaterally - Neurologic Neurologic: no focal deficits - Psychiatric Psychiatric: appropriate mood/affect - Labs CBC & Chem 7: 02/03/21 09:10 02/02/21 08:00 Labs: Abnormal lab results 02/02/21 02/02/21 02/02/21 Range/Units 08:00 11:01 16:21 RBC (3.65-5.03) M/mm3 Hgb (10.1-14.3) gm/dl Hct (30.3-42.9) % MCH (28-32) pg RDW (13.2-15.2) % Plt Count (140-440) K/mm3 Lymphocytes # (Manual) 1.1 L (1.2-5.4) K/mm3 POC Glucose 189 H (70-105) mg/dL Lactic Acid 2.40 H* (0.7-2.0) mmol/L Crossmatch 02/02/21 02/03/21 02/03/21 Range/Units 22:02 00:11 07:51 RBC (3.65-5.03) M/mm3 Hgb (10.1-14.3) gm/dl Hct (30.3-42.9) % MCH (28-32) pg RDW (13.2-15.2) % Plt Count (140-440) K/mm3 Lymphocytes # (Manual) (1.2-5.4) K/mm3 POC Glucose 212 H 297 H (70-105) mg/dL Lactic Acid (0.7-2.0) mmol/L Crossmatch See Detail 02/03/21 Range/Units 09:10 RBC 3.22 L (3.65-5.03) M/mm3 Hgb 8.6 L (10.1-14.3) gm/dl Hct 26.8 L D (30.3-42.9) % MCH 27 L (28-32) pg RDW 19.1 H (13.2-15.2) % Plt Count 138 L (140-440) K/mm3 Lymphocytes # (Manual) (1.2-5.4) K/mm3 POC Glucose (70-105) mg/dL Lactic Acid (0.7-2.0) mmol/L Crossmatch
[2021-02-03] MEDS ORDERED: MAGNESIUM SULFATE 1 GM in SODIUM CHLORIDE 0.9% 50 ML IV ONE (10:42)
[2021-02-03 11:19] LABS: Alanine Aminotransferase 8 units/L (7-56); Albumin 3.1 g/dL (3.9-5); Blood Urea Nitrogen 16 mg/dL (7-17); Calcium 8.9 mg/dL (8.4-10.2); Hemolysis Index 2
[2021-02-03 11:32] LABS: BUN/Creatinine Ratio 23
[2021-02-03 12:35] LABS: % Iron Saturation 70.97 %
[2021-02-03 15:12] LABS: Band Neutrophils # (Manual) 0.2 K/mm3; Hypochromasia Few; Large Platelets Rare; Tear Drop Cells Few; Total Cells Counted 100
[2021-02-03 15:13] LABS: Platelet Estimate Consistent w Auto
--- NOTE | 2021-02-03 17:55 | Consultation ---
History of Present Illness - Reason for Consult Consult date: 02/03/21 Anemia Requesting physician: ROSIE ANDRES - History of Present Illness Ms. Espitia is a 60-year-old woman from [facility] who is brought by her daughter via ambulance due to acute onset of dyspnea and weakness this morning. She was found to be profoundly anemic with a hemoglobin of 5.7, and has been transfused to a hemoglobin of 8.6. GI consultation is obtained for further evaluation. Patient denies any abdominal pain, nausea or vomiting, or GI bleeding. Her bowel movements are irregular and occur after meals generally. There has been no change in this. Patient has been losing weight over the last 2 or 3 months, but the daughter cannot quantify it. Of note, patient was hospitalized at [facility] from December 22 through December 27, and from January 07 through January 142020. During both of these admissions, she was noted to be anemic with a hemoglobin of approximately 6.5 on admission. She was given 1 unit of packed red blood cells in the first admission, and 2 units on the second admission. Stool for occult blood x2 was negative. Iron studies and B12 studies were unremarkable. Her haptoglobin was elevated at greater than 400. She was referred to hematology, and has an appointment with Dr. Jang tomorrow. She was well until approximately 2 or 3 months ago, when she noted intermittent problems with left iliac crest pain. She states that the pain is intense and when she has it, it can last up to 2 days. During the time that she has the pain, she has no appetite. She has also had low-grade fevers with this and was febrile on admission to the ER this time. She notes that she had pain for 2 days prior to this admission. She had fevers during her [facility] admission as well. She has had extensive lab work and imaging. Patient has no prior history of GI bleed or anemia. There is no history of peptic ulcer disease. At discharge from [facility], she was on a proton pump inhibitor as well as Carafate. Past History Past Medical History: anemia Past Surgical History: No surgical history Social history: denies: smoking, alcohol abuse Medications and Allergies Allergies Allergy/AdvReac Type Severity Reaction Status Date / Time No Known Allergies Allergy Unverified 02/02/21 08:26 Home Medications Medication Instructions Recorded Confirmed Last Taken Type Ferrous Sulfate [Slow Release Iron 250 mg PO BID 02/02/21 02/02/21 Unknown History 250 MG] Gabapentin [Neurontin] 100 mg PO BID 02/02/21 02/02/21 Unknown History Sucralfate [Carafate] 1 gm PO ACHS 02/02/21 02/02/21 Unknown History Active Meds: Active Medications Acetaminophen (Acetaminophen 325 Mg Tab) 650 mg PO Q4H PRN PRN Reason: Pain MILD(1-3)/Fever >100.5/GOLDMAN Last Admin: 02/02/21 22:50 Dose: 650 mg Documented by: Albuterol (Albuterol 2.5 Mg/3 Ml Nebu) 2.5 mg IH Q3HRT PRN PRN Reason: Wheezing Albuterol/Ipratropium (Ipratropium/Albuterol Sulfate 3 Ml Ampul.Neb) 1 ampul IH QIDRT [facility] Last Admin: 02/03/21 16:08 Dose: 1 ampul Documented by: Dexamethasone (Dexamethasone 4 Mg/Ml Vial) 8 mg IV Q24H [facility] Last Admin: 02/02/21 21:51 Dose: 8 mg Documented by: Famotidine (Famotidine 20 Mg/2 Ml Inj) 20 mg IV BID [facility] Last Admin: 02/03/21 09:33 Dose: 20 mg Documented by: Gabapentin (Gabapentin 100 Mg Cap) 100 mg PO BID [facility] Last Admin: 02/03/21 09:33 Dose: 100 mg Documented by: Heparin Sodium (Porcine) (Heparin 5,000 Unit/1 Ml Vial) 5,000 unit SUB-Q Q12HR [facility] Last Admin: 02/03/21 09:33 Dose: 5,000 unit Documented by: Ceftriaxone Sodium (Rocephin/Ns 2 Gm/100 Ml) 2 gm in 100 mls @ 200 mls/hr IV Q24H [facility]; Protocol Last Admin: 02/02/21 21:46 Dose: 200 mls/hr Documented by: Azithromycin (Zithromax/Ns) 500 mg in 250 mls @ 250 mls/hr IV Q24H [facility] Last Admin: 02/02/21 22:48 Dose: 250 mls/hr Documented by: Insulin Human Lispro (Insulin Lispro 100 Unit/Ml) 0 unit SUB-Q [facility]; Protocol Last Admin: 02/03/21 17:17 Dose: 8 unit Documented by: Metoclopramide HCl (Metoclopramide 10 Mg/2 Ml Inj) 10 mg IV Q6H PRN PRN Reason: Nausea And Vomiting Ondansetron HCl (Ondansetron 4 Mg/2 Ml Inj) 4 mg IV Q3H PRN PRN Reason: Nausea And Vomiting Oxycodone/Acetaminophen (Oxycodone /Acetaminophen 5-325mg Tab) 1 tab PO Q6H PRN PRN Reason: Pain, Moderate (4-6) Sodium Chloride (Sodium Chloride 0.9% 10 Ml Flush Syringe) 10 ml IV BID [facility] Last Admin: 02/03/21 12:43 Dose: 10 ml Documented by: Sodium Chloride (Sodium Chloride 0.9% 10 Ml Flush Syringe) 10 ml IV PRN PRN PRN Reason: LINE FLUSH Sucralfate (Sucralfate 1 Gm Tab) 1 gm PO ACHS [facility] Last Admin: 02/03/21 17:16 Dose: 1 gm Documented by: Review of Systems All systems: negative (as per HPI) Exam - Constitutional Vitals: Temp Pulse Resp BP Pulse Ox 97.6 F 100 H 18 110/58 98 02/03/21 05:48 02/03/21 16:08 02/03/21 16:08 02/03/21 05:48 02/03/21 09:00 General appearance: Present: no acute distress - EENT Eyes: Present: PERRL, EOM intact ENT: hearing intact - Neck Neck: Present: supple - Respiratory Respiratory effort: normal Respiratory: bilateral: CTA - Cardiovascular Rhythm: regular Heart Sounds: Present: S1 & S2 - Extremities Extremities: No edema - Abdominal General gastrointestinal: Present: soft, non-tender Results - Labs CBC & Chem 7: 02/03/21 09:10 02/03/21 09:10 Labs: Abnormal lab results 02/02/21 02/03/21 02/03/21 Range/Units 22:02 00:11 07:51 RBC (3.65-5.03) M/mm3 Hgb (10.1-14.3) gm/dl Hct (30.3-42.9) % MCH (28-32) pg RDW (13.2-15.2) % Plt Count (140-440) K/mm3 Seg Neuts % (Manual) (40.0-70.0) % Carbon Dioxide (22-30) mmol/L Glucose (65-100) mg/dL POC Glucose 212 H 297 H (70-105) mg/dL Hemoglobin A1c (4-6) % TIBC (250-450) mcg/dL Transferrin (192-382) mg/dl Alkaline Phosphatase (35-129) units/L Total Protein (6.3-8.2) g/dL Albumin (3.9-5) g/dL Vitamin B12 (211-911) pg/mL Crossmatch See Detail 02/03/21 02/03/21 02/03/21 Range/Units 09:10 09:10 09:10 RBC 3.22 L (3.65-5.03) M/mm3 Hgb 8.6 L (10.1-14.3) gm/dl Hct 26.8 L D (30.3-42.9) % MCH 27 L (28-32) pg RDW 19.1 H (13.2-15.2) % Plt Count 138 L (140-440) K/mm3 Seg Neuts % (Manual) 74.0 H (40.0-70.0) % Carbon Dioxide 18 L (22-30) mmol/L Glucose 364 H (65-100) mg/dL POC Glucose (70-105) mg/dL Hemoglobin A1c (4-6) % TIBC 155 L (250-450) mcg/dL Transferrin 116 L (192-382) mg/dl Alkaline Phosphatase 224 H (35-129) units/L Total Protein 6.2 L (6.3-8.2) g/dL Albumin 3.1 L (3.9-5) g/dL Vitamin B12 (211-911) pg/mL Crossmatch 02/03/21 02/03/21 02/03/21 Range/Units 09:10 09:10 10:45 RBC (3.65-5.03) M/mm3 Hgb (10.1-14.3) gm/dl Hct (30.3-42.9) % MCH (28-32) pg RDW (13.2-15.2) % Plt Count (140-440) K/mm3 Seg Neuts % (Manual) (40.0-70.0) % Carbon Dioxide (22-30) mmol/L Glucose (65-100) mg/dL POC Glucose 401 H (70-105) mg/dL Hemoglobin A1c 7.0 H (4-6) % TIBC (250-450) mcg/dL Transferrin (192-382) mg/dl Alkaline Phosphatase (35-129) units/L Total Protein (6.3-8.2) g/dL Albumin (3.9-5) g/dL Vitamin B12 1010 H (211-911) pg/mL Crossmatch 02/03/21 Range/Units 15:29 RBC (3.65-5.03) M/mm3 Hgb (10.1-14.3) gm/dl Hct (30.3-42.9) % MCH (28-32) pg RDW (13.2-15.2) % Plt Count (140-440) K/mm3 Seg Neuts % (Manual) (40.0-70.0) % Carbon Dioxide (22-30) mmol/L Glucose (65-100) mg/dL POC Glucose 328 H (70-105) mg/dL Hemoglobin A1c (4-6) % TIBC (250-450) mcg/dL Transferrin (192-382) mg/dl Alkaline Phosphatase (35-129) units/L Total Protein (6.3-8.2) g/dL Albumin (3.9-5) g/dL Vitamin B12 (211-911) pg/mL Crossmatch Assessment and Plan 1. Anemia -etiology is unclear. This is normocytic and normochromic. Her iron saturation here is 71% and that [facility] was over 40%. The ferritin level is markedly elevated here at over 17,800, and it was greater than 1000 at [facility]. I believe the anemia is part of a systemic process and associated with her fevers as well as the left lower back pain. There does not appear to be a GI process with blood loss to account for her anemia. -Agree with ID evaluation and review -Would also want hematologic evaluation. Patient has appointment tomorrow but will likely need to reschedule it. If inpatient consultation is available, it may be beneficial. -No plans for endoscopic evaluation at present unless there is evidence of GI blood loss. -Can recheck stool for occult blood.
[2021-02-03] MEDS: cefTRIAXone/NS 2 GM/100 ML 2 GM/100 ML BAG IV SCH (21:23)
[2021-02-03] MEDS: dexAMETHasone 4 MG/ML VIAL IV SCH (21:29)
[2021-02-03] MEDS: AZITHROMYCIN/NS 500 MG/250 ML 500 MG/250 ML BAG IV SCH (22:43)
[2021-02-04 06:18] LABS: Hematocrit 22.5 % (30.3-42.9); Hemoglobin 7.3 gm/dl (10.1-14.3); Mean Corpuscular HGB Conc 32 % (30-34); Mean Corpuscular Volume 82 fl (79-97); Platelet Count 120 K/mm3 (140-440); Red Blood Count 2.75 M/mm3 (3.65-5.03); Red Cell Distribution Width 18.9 % (13.2-15.2)
[2021-02-04 06:39] LABS: Alanine Aminotransferase 12 units/L (7-56); Blood Urea Nitrogen 18 mg/dL (7-17); Calcium 8.8 mg/dL (8.4-10.2); Hemolysis Index 0
[2021-02-04 06:43] LABS: BUN/Creatinine Ratio 30
[2021-02-04] MEDS: IPRATROPIUM/ALBUTEROL SULFATE 3 ML AMPUL.NEB IH SCH (08:08)
--- NOTE | 2021-02-04 10:05 | Progress Note ---
Subjective Date of service: 02/04/21 Interval history: 60-year-old female with history of diabetes presents with cough intermittent fever and shortness of breath and weakness for 2 weeks. Patient was discharged from [facility] recently. Patient was apparently admitted for urinary tract infection. When EMS arrived fever was higher than 1 and patient was tachycardic with a heart rate of 150s to 160s. Comfortable color sputum. Shortness of breath is intermittent. Patient is not Covid vaccinated. Language barrier present. No chest pain. No loss of taste or smell. In the emergency room patient fever of 100.7. Patient has past medical history significant for GERD anemia and peripheral neuropathy no nausea or vomiting. No hematemesis or melanotic stools. 02/03 awake and alert. Offers no specific complaints. Feels a whole lot better after blood transfusion. She denies any headache or dizziness. Denies chest pain or shortness of breath denies nausea or abdominal pain. Denies melena. Denies using NSAIDs. lab results reviewed. 12 point review of systems is essentially unremarkable except as stated above in the history of present illness Assessment and plan Severe anemia-recurrent Status post PRBC transfusion Posttransfusion hemoglobin 8.6 -down to 7.3 this morning Check stool for occult blood GI consulted and note reviewed and appreciated I discussed over the phone with Dr. Marcelo as patient apparently had an appointment today to see him He recommended peripheral smear to be seen by pathologist,(to rule out hemophagocytosis syndrome), also recommended to check uric acid, haptoglobin and reticulocyte count and SPEP He also is willing to see her once she is discharged SIRS Inflammatory markers reviewed-severely elevated D-dimer, CRP, LDH and ferritin Procalcitonin is markedly elevated Tested negative for COVID-19 CTA chest negative for PE Chest x-ray reviewed We will check venous Doppler of lower extremities due to markedly elevated D- dimer We will discontinue Decadron as patient is not hypoxic We will also discontinue neb treatments as the patient denies any shortness of breath Type 2 diabetes A1c A1C 7.0 Patient came from [facility] to this country about 2 months ago States she has not taken any diabetes medicine since she came here cont. insulin sliding scale coverage Fever/tachycardia/-improved She has been afebrile since yesterday Heart rate has improved Chest x-ray reviewed CTA chest reviewed Unclear etiology Rule out viral syndrome ID consulted -evaluation pending DVT prophylaxis We will discontinue subcu heparin as the platelets are trending down SCDs Objective - Constitutional Vitals: Vital Signs - 12hr 02/03/21 02/04/21 22:02 05:02 Temperature 98.0 F 98.5 F Pulse Rate 119 H 91 H Respiratory 20 16 Rate Blood Pressure 136/65 151/80 O2 Sat by Pulse 100 99 Oximetry General appearance: Present: no acute distress - EENT Eyes: PERRL, EOM intact ENT: hearing intact, clear oral mucosa - Neck Neck: supple, normal ROM - Respiratory Respiratory effort: normal Respiratory: bilateral: CTA - Cardiovascular Rhythm: regular Heart Sounds: Present: S1 & S2 Extremities: No edema - Gastrointestinal General gastrointestinal: Present: soft, non-tender Rectal Exam: deferred - Integumentary Integumentary: clear - Musculoskeletal Musculoskeletal: strength equal bilaterally - Neurologic Neurologic: no focal deficits - Psychiatric Psychiatric: appropriate mood/affect - Labs CBC & Chem 7: 02/04/21 04:39 02/04/21 04:39 Labs: Abnormal lab results 02/03/21 02/03/21 02/03/21 Range/Units 09:10 09:10 09:10 RBC 3.22 L (3.65-5.03) M/mm3 Hgb 8.6 L (10.1-14.3) gm/dl Hct 26.8 L D (30.3-42.9) % MCH 27 L (28-32) pg RDW 19.1 H (13.2-15.2) % Plt Count 138 L (140-440) K/mm3 Seg Neuts % (Manual) 74.0 H (40.0-70.0) % Percent Retic (0.78-2.58) % Carbon Dioxide 18 L (22-30) mmol/L BUN (7-17) mg/dL Glucose 364 H (65-100) mg/dL POC Glucose (70-105) mg/dL Hemoglobin A1c (4-6) % Uric Acid (3.5-7.6) mg/dL TIBC 155 L (250-450) mcg/dL Transferrin 116 L (192-382) mg/dl Alkaline Phosphatase 224 H (35-129) units/L Total Protein 6.2 L (6.3-8.2) g/dL Albumin 3.1 L (3.9-5) g/dL Vitamin B12 (211-911) pg/mL 02/03/21 02/03/21 02/03/21 Range/Units 09:10 09:10 10:45 RBC (3.65-5.03) M/mm3 Hgb (10.1-14.3) gm/dl Hct (30.3-42.9) % MCH (28-32) pg RDW (13.2-15.2) % Plt Count (140-440) K/mm3 Seg Neuts % (Manual) (40.0-70.0) % Percent Retic (0.78-2.58) % Carbon Dioxide (22-30) mmol/L BUN (7-17) mg/dL Glucose (65-100) mg/dL POC Glucose 401 H (70-105) mg/dL Hemoglobin A1c 7.0 H (4-6) % Uric Acid (3.5-7.6) mg/dL TIBC (250-450) mcg/dL Transferrin (192-382) mg/dl Alkaline Phosphatase (35-129) units/L Total Protein (6.3-8.2) g/dL Albumin (3.9-5) g/dL Vitamin B12 1010 H (211-911) pg/mL 02/03/21 02/03/21 02/04/21 Range/Units 15:29 21:18 04:39 RBC 2.75 L (3.65-5.03) M/mm3 Hgb 7.3 L (10.1-14.3) gm/dl Hct 22.5 L (30.3-42.9) % MCH 27 L (28-32) pg RDW 18.9 H (13.2-15.2) % Plt Count 120 L (140-440) K/mm3 Seg Neuts % (Manual) (40.0-70.0) % Percent Retic (0.78-2.58) % Carbon Dioxide (22-30) mmol/L BUN (7-17) mg/dL Glucose (65-100) mg/dL POC Glucose 328 H 359 H (70-105) mg/dL Hemoglobin A1c (4-6) % Uric Acid (3.5-7.6) mg/dL TIBC (250-450) mcg/dL Transferrin (192-382) mg/dl Alkaline Phosphatase (35-129) units/L Total Protein (6.3-8.2) g/dL Albumin (3.9-5) g/dL Vitamin B12 (211-911) pg/mL 02/04/21 02/04/21 02/04/21 Range/Units 04:39 09:12 09:12 RBC (3.65-5.03) M/mm3 Hgb (10.1-14.3) gm/dl Hct (30.3-42.9) % MCH (28-32) pg RDW (13.2-15.2) % Plt Count (140-440) K/mm3 Seg Neuts % (Manual) (40.0-70.0) % Percent Retic 0.29 L (0.78-2.58) % Carbon Dioxide 18 L (22-30) mmol/L BUN 18 H (7-17) mg/dL Glucose 400 H (65-100) mg/dL POC Glucose (70-105) mg/dL Hemoglobin A1c (4-6) % Uric Acid 3.4 L (3.5-7.6) mg/dL TIBC (250-450) mcg/dL Transferrin (192-382) mg/dl Alkaline Phosphatase 184 H (35-129) units/L Total Protein (6.3-8.2) g/dL Albumin 3.0 L (3.9-5) g/dL Vitamin B12 (211-911) pg/mL
[2021-02-04] MEDS: SUCRALFATE 1 GM TAB PO SCH ×4 (10:08→21:24)
[2021-02-04] MEDS: INSULIN LISPRO 100 UNIT/ML SUB-Q SCH ×4 (10:09→22:36)
[2021-02-04] MEDS: GABAPENTIN 100 MG CAP PO SCH ×2 (10:09→21:24)
[2021-02-04] MEDS: FAMOTIDINE 20 MG TAB PO SCH ×2 (10:10→21:24)
--- NOTE | 2021-02-04 11:48 | Vascular Lab Report ---
DUPLEX DOPPLER LOWER EXTREMITY VEINS, BILATERAL INDICATION / CLINICAL INFORMATION: high d dimer. TECHNIQUE: Duplex doppler imaging was performed through the veins of both lower extremities using wilda ous compression and other maneuvers. COMPARISON: None available. FINDINGS: RIGHT COMMON FEMORAL VEIN: Negative. RIGHT FEMORAL VEIN: Negative. RIGHT POPLITEAL VEIN: Negative. RIGHT CALF VEINS: Negative. LEFT COMMON FEMORAL VEIN: Negative. LEFT FEMORAL VEIN: Negative. LEFT POPLITEAL VEIN: Negative. LEFT CALF VEINS: Negative. ADDITIONAL FINDINGS: None. IMPRESSION: 1. No sonographic evidence for DVT in either lower extremity. Scribed by: Odalys Mathis RDMS, RVT Scribed: 02/04/2021 10:41 AM I have reviewed the images, agree with this report, and edited this report as needed. Signer Name: Francisco Javier Plascencia MD Signed: 02/04/2021 11:43 AM Workstation Name: [id number]
[2021-02-04 12:40] LABS: Total Cells Counted 100
--- NOTE | 2021-02-04 12:40 | Consultation ---
History of Present Illness - Reason for Consult Consult date: 02/04/21 Fever, sepsis Requesting physician: CHRIS CASEY - History of Present Illness The patient is a 60-year-old female with diabetes mellitus admitted to the hospital with cough, intermittent fever and shortness of breath going on for 2 weeks. Patient is originally from [facility]. Upon evaluation here, T-max was 101.3F. She was noted to have severe anemia requiring blood transfusion. CTA here did not reveal any PE or evidence of pneumonia. No evidence of mediastinal lymphadenopathy. D-dimer greater than 10K, uncontrolled diabetes, ferritin 40948, LDH 2476, CRP 34.9, procalcitonin 20.88 Patient was recently hospitalized at [facility] from 01/07/2021 to 01/14/2021 with high-grade intermittent fevers and lower back pain, CT scan revealed evidence of pyelonephritis for which she was seen by infectious diseases there and treated with IV antibiotics, discharged on oral ciprofloxacin to complete [address] did not reveal any evidence of abscess in the kidney. Due to being from [facility], she did get a malaria smear done which was negative. Review of Systems: fever, also some nasal congestion. no other complaints. Language varrier present. Past History Past Medical History: anemia Past Surgical History: No surgical history Social history: denies: smoking, alcohol abuse Medications and Allergies Allergies Allergy/AdvReac Type Severity Reaction Status Date / Time No Known Allergies Allergy Unverified 02/02/21 08:26 Home Medications Medication Instructions Recorded Confirmed Last Taken Type Ferrous Sulfate [Slow Release Iron 250 mg PO BID 02/02/21 02/02/21 Unknown History 250 MG] Gabapentin [Neurontin] 100 mg PO BID 02/02/21 02/02/21 Unknown History Sucralfate [Carafate] 1 gm PO ACHS 02/02/21 02/02/21 Unknown History Active Meds: Active Medications Acetaminophen (Acetaminophen 325 Mg Tab) 650 mg PO Q4H PRN PRN Reason: Pain MILD(1-3)/Fever >100.5/GOLDMAN Last Admin: 02/02/21 22:50 Dose: 650 mg Documented by: Albuterol (Albuterol 2.5 Mg/3 Ml Nebu) 2.5 mg IH Q3HRT PRN PRN Reason: Wheezing Famotidine (Famotidine 20 Mg Tab) 20 mg PO BID [facility] Last Admin: 02/04/21 10:10 Dose: 20 mg Documented by: Gabapentin (Gabapentin 100 Mg Cap) 100 mg PO BID [facility] Last Admin: 02/04/21 10:09 Dose: 100 mg Documented by: Ceftriaxone Sodium (Rocephin/Ns 2 Gm/100 Ml) 2 gm in 100 mls @ 200 mls/hr IV Q24H [facility]; Protocol Stop: 02/06/21 22:29 Last Admin: 02/03/21 21:23 Dose: 200 mls/hr Documented by: Insulin Human Lispro (Insulin Lispro 100 Unit/Ml) 0 unit SUB-Q [facility]; Protocol Last Admin: 02/04/21 10:09 Dose: 10 unit Documented by: Metoclopramide HCl (Metoclopramide 10 Mg/2 Ml Inj) 10 mg IV Q6H PRN PRN Reason: Nausea And Vomiting Ondansetron HCl (Ondansetron 4 Mg/2 Ml Inj) 4 mg IV Q3H PRN PRN Reason: Nausea And Vomiting Oxycodone/Acetaminophen (Oxycodone /Acetaminophen 5-325mg Tab) 1 tab PO Q6H PRN PRN Reason: Pain, Moderate (4-6) Sodium Chloride (Sodium Chloride 0.9% 10 Ml Flush Syringe) 10 ml IV BID [facility] Last Admin: 02/04/21 10:10 Dose: 10 ml Documented by: Sodium Chloride (Sodium Chloride 0.9% 10 Ml Flush Syringe) 10 ml IV PRN PRN PRN Reason: LINE FLUSH Sucralfate (Sucralfate 1 Gm Tab) 1 gm PO [facility] Last Admin: 02/04/21 10:08 Dose: 1 gm Documented by: Physical Examination - Physical Exam Narrative exam: Physical Exam: Constitutional: Alert, cooperative. No acute distress Head, Ears, Nose: Normocephalic, atraumatic. External ears, nose normal Eyes: Conjunctivae/corneas clear. No icterus. No ptosis. Neck: Supple, no meningeal signs Oral: dentition fair, no thrush Cardiovascular: S1, S2 + Respiratory: Good air entry, clear to auscultation bilaterally GI: Soft, non-tender; bowel sounds normal. No peritoneal signs Musculoskeletal: No pedal edema, no cyanosis. Skin: No rash or abscess Hem/Lymphatic: No palpable cervical or supraclavicular nodes. No lymphangitis Psych: Mood ok. Affect normal Neurological: Awake, alert, oriented. No gross abnormality - Constitutional Vitals: Vital Signs Temp Pulse Resp BP Pulse Ox 98.5 F 95 H 18 151/80 100 02/04/21 05:02 02/04/21 08:08 02/04/21 08:08 02/04/21 05:02 02/04/21 09:00 Temperature -Last 24 Hours Temperature 98.5 F Temperature 98.0 F Temperature 98.7 F Results - Labs CBC & Chem 7: 02/04/21 04:39 02/04/21 04:39 Labs: Abnormal lab results 02/03/21 02/03/21 02/03/21 Range/Units 09:10 09:10 15:29 RBC (3.65-5.03) M/mm3 Hgb (10.1-14.3) gm/dl Hct (30.3-42.9) % MCH (28-32) pg RDW (13.2-15.2) % Plt Count (140-440) K/mm3 Seg Neuts % (Manual) 74.0 H (40.0-70.0) % Percent Retic (0.78-2.58) % Carbon Dioxide (22-30) mmol/L BUN (7-17) mg/dL Glucose (65-100) mg/dL POC Glucose 328 H (70-105) mg/dL Uric Acid (3.5-7.6) mg/dL Alkaline Phosphatase (35-129) units/L Albumin (3.9-5) g/dL Vitamin B12 1010 H (211-911) pg/mL 02/03/21 02/04/21 02/04/21 Range/Units 21:18 04:39 04:39 RBC 2.75 L (3.65-5.03) M/mm3 Hgb 7.3 L (10.1-14.3) gm/dl Hct 22.5 L (30.3-42.9) % MCH 27 L (28-32) pg RDW 18.9 H (13.2-15.2) % Plt Count 120 L (140-440) K/mm3 Seg Neuts % (Manual) (40.0-70.0) % Percent Retic (0.78-2.58) % Carbon Dioxide 18 L (22-30) mmol/L BUN 18 H (7-17) mg/dL Glucose 400 H (65-100) mg/dL POC Glucose 359 H (70-105) mg/dL Uric Acid (3.5-7.6) mg/dL Alkaline Phosphatase 184 H (35-129) units/L Albumin 3.0 L (3.9-5) g/dL Vitamin B12 (211-911) pg/mL 02/04/21 02/04/21 Range/Units 09:12 09:12 RBC (3.65-5.03) M/mm3 Hgb (10.1-14.3) gm/dl Hct (30.3-42.9) % MCH (28-32) pg RDW (13.2-15.2) % Plt Count (140-440) K/mm3 Seg Neuts % (Manual) (40.0-70.0) % Percent Retic 0.29 L (0.78-2.58) % Carbon Dioxide (22-30) mmol/L BUN (7-17) mg/dL Glucose (65-100) mg/dL POC Glucose (70-105) mg/dL Uric Acid 3.4 L (3.5-7.6) mg/dL Alkaline Phosphatase (35-129) units/L Albumin (3.9-5) g/dL Vitamin B12 (211-911) pg/mL - Imaging and Cardiology Chest x-ray: report reviewed, image reviewed (no pneumonia) Assessment and Plan Cultures: 02/02/2021 blood culture: No growth 02/02/2021 urine culture: No growth COVID-19 PCR: Negative MRSA nasal PCR: Negative A/P: 60-year-old female with diabetes mellitus from [facility] with: #Recurrent fever syndrome: Recent hospitalization at [facility] with pyelonephritis, treated with empiric antibiotics. UA without pyuria, no leukocytosis here, labs revealed severe anemia as well as thrombocytopenia. In addition, CRP, procalcitonin are high, ferritin is extremely elevated at 17K. ?HLH. Due to being from [facility], she did get a malaria smear done at [facility] which was negative. #Elevated d-dimer #Uncontrolled diabetes Recs: -Empiric IV ceftriaxone for now -CT abdomen pelvis with IV contrast ordered to evaluate for hepatosplenomegaly -Consider hematology consult -Ordered triglycerides, fibrinogen, soluble IL-2 receptor -EBV, CMV serologies ordered -HIV ordered, verbal consent obtained Martina Krishnan MD, FACP, [facility] ([facility] O: [phone] F: [phone]
[2021-02-04 12:41] LABS: Band Neutrophils # (Manual) 0.6 K/mm3; Myelocytes # (Manual) 0.1 K/mm3
[2021-02-04 12:42] LABS: Anisocytosis 2+; Hypochromasia 1+; Ovalocytes Rare; Target Cells Few; Tear Drop Cells 1+
[2021-02-04 12:43] LABS: Platelet Estimate Cons
--- NOTE | 2021-02-04 14:31 | Hem/Onc Consultation ---
History of Present Illness - Reason for Consult Consult date: 02/04/21 anemia - History of Present Illness Heme consult note televisit via [employer]--spoke to daughter via phone d/t language barrier CPT: 81587 Dx: anemia This is a 60yo female who presents to the ER via EMS with complaints of SOB, fever, cough, and weakness Recent admission at [facility] for UTI Recently moved from [facility], tested for Malaria at [facility] which was negative Language barrier, history obtained by daughter Salena Past medical h/o diabetes Complaints of iliac crest pain and weight loss On admission noted to have anemia hct 17.9, and high ferritin 17,843, high ddimer Chest Xray negative Chest CT negative DATA REVIEWED BELOW IMP: Severe anemia with evidence of bone marrow dysfunction R/o sickle cell anemia R/o myeloma Doubt HLH, but r/o MDS/lymphoma REC/PLAN: Transfuse 1 unit RBC whenever hct<23 Chest/abd/pelvis CT with IV contrast AM labs to include hgb electrophoresis, val, PT/PTT, malaria thick prep Pending spep results Plan for BM biopsy tomorrow Laboratory Last Values WBC 8.6 K/mm3 (4.5-11.0) 02/04/21 04:39 Hgb 7.3 gm/dl (10.1-14.3) L 02/04/21 04:39 Hct 22.5 % (30.3-42.9) L 02/04/21 04:39 Plt Count 120 K/mm3 (140-440) L 02/04/21 04:39 Add Manual Diff Complete 02/03/21 09:10 Total Counted 100 02/04/21 04:39 Seg Neuts % (Manual) 75.0 % (40.0-70.0) H 02/04/21 04:39 Band Neutrophils % 7.0 % 02/04/21 04:39 Lymphocytes % (Manual) 16.0 % (13.4-35.0) 02/04/21 04:39 Monocytes % (Manual) 1.0 % (0.0-7.3) 02/04/21 04:39 Metamyelocytes % 1.0 % 02/02/21 08:00 Myelocytes % 1.0 % 02/04/21 04:39 Nucleated RBC % 1.0 % (0.0-0.9) H 02/04/21 04:39 Seg Neutrophils # Man 6.5 K/mm3 (1.8-7.7) 02/04/21 04:39 Band Neutrophils # 0.6 K/mm3 02/04/21 04:39 Lymphocytes # (Manual) 1.4 K/mm3 (1.2-5.4) 02/04/21 04:39 Abs React Lymphs (Man) 0.0 K/mm3 02/04/21 04:39 Monocytes # (Manual) 0.1 K/mm3 (0.0-0.8) 02/04/21 04:39 Eosinophils # (Manual) 0.0 K/mm3 (0.0-0.4) 02/04/21 04:39 Basophils # (Manual) 0.0 K/mm3 (0.0-0.1) 02/04/21 04:39 Metamyelocytes # 0.0 K/mm3 02/04/21 04:39 Myelocytes # 0.1 K/mm3 02/04/21 04:39 Promyelocytes # 0.0 K/mm3 02/04/21 04:39 Blast Cells # 0.0 K/mm3 02/04/21 04:39 Malaria parasites Not Reportable 02/04/21 04:39 Percent Retic 0.29 % (0.78-2.58) L 02/04/21 09:12 Fibrinogen 528 mg/dl (211-480) H 02/04/21 13:00 D-Dimer > 65435 ng/mlDDU (0-234) H 02/02/21 08:00 Creatinine 0.6 mg/dL (0.6-1.2) 02/04/21 04:39 Iron 110 ug/dL (37-170) 02/03/21 09:10 TIBC 155 mcg/dL (250-450) L 02/03/21 09:10 % Saturation 70.97 % 02/03/21 09:10 Transferrin 116 mg/dl (192-382) L 02/03/21 09:10 Ferritin 94981.0 ng/mL (10.0-200.0) H 02/02/21 08:00 Total Bilirubin 0.20 mg/dL (0.1-1.2) 02/04/21 04:39 AST 22 units/L (5-40) 02/04/21 04:39 ALT 12 units/L (7-56) 02/04/21 04:39 Alkaline Phosphatase 184 units/L (35-129) H 02/04/21 04:39 Lactate Dehydrogenase 2476 units/L (91-180) H 02/02/21 08:00 C-Reactive Protein 34.90 mg/dL (0.00-1.30) H 02/02/21 08:00 Vitamin B12 1010 pg/mL (211-911) H 02/03/21 09:10 Past History Past Medical History: anemia Past Surgical History: No surgical history Social history: denies: smoking, alcohol abuse Medications and Allergies Allergies Allergy/AdvReac Type Severity Reaction Status Date / Time No Known Allergies Allergy Unverified 02/02/21 08:26 Home Medications Medication Instructions Recorded Confirmed Last Taken Type Ferrous Sulfate [Slow Release Iron 250 mg PO BID 02/02/21 02/02/21 Unknown History 250 MG] Gabapentin [Neurontin] 100 mg PO BID 02/02/21 02/02/21 Unknown History Sucralfate [Carafate] 1 gm PO ACHS 02/02/21 02/02/21 Unknown History Active Meds: Active Medications Acetaminophen (Acetaminophen 325 Mg Tab) 650 mg PO Q4H PRN PRN Reason: Pain MILD(1-3)/Fever >100.5/GOLDMAN Last Admin: 02/02/21 22:50 Dose: 650 mg Documented by: Albuterol (Albuterol 2.5 Mg/3 Ml Nebu) 2.5 mg IH Q3HRT PRN PRN Reason: Wheezing Famotidine (Famotidine 20 Mg Tab) 20 mg PO BID [facility] Last Admin: 02/04/21 10:10 Dose: 20 mg Documented by: Gabapentin (Gabapentin 100 Mg Cap) 100 mg PO BID [facility] Last Admin: 02/04/21 10:09 Dose: 100 mg Documented by: Ceftriaxone Sodium (Rocephin/Ns 2 Gm/100 Ml) 2 gm in 100 mls @ 200 mls/hr IV Q24H [facility]; Protocol Stop: 02/06/21 22:29 Last Admin: 02/03/21 21:23 Dose: 200 mls/hr Documented by: Insulin Human Lispro (Insulin Lispro 100 Unit/Ml) 0 unit SUB-Q ACHS [facility]; Protocol Last Admin: 02/04/21 13:11 Dose: 6 unit Documented by: Metoclopramide HCl (Metoclopramide 10 Mg/2 Ml Inj) 10 mg IV Q6H PRN PRN Reason: Nausea And Vomiting Ondansetron HCl (Ondansetron 4 Mg/2 Ml Inj) 4 mg IV Q3H PRN PRN Reason: Nausea And Vomiting Oxycodone/Acetaminophen (Oxycodone /Acetaminophen 5-325mg Tab) 1 tab PO Q6H PRN PRN Reason: Pain, Moderate (4-6) Sodium Chloride (Sodium Chloride 0.9% 10 Ml Flush Syringe) 10 ml IV BID [facility] Last Admin: 02/04/21 10:10 Dose: 10 ml Documented by: Sodium Chloride (Sodium Chloride 0.9% 10 Ml Flush Syringe) 10 ml IV PRN PRN PRN Reason: LINE FLUSH Sucralfate (Sucralfate 1 Gm Tab) 1 gm PO ACHS [facility] Last Admin: 02/04/21 13:11 Dose: 1 gm Documented by: Exam - Constitutional Vitals: Last Vital Signs Temp 98.5 F 02/04/21 05:02 Pulse 95 H 02/04/21 08:08 Resp 18 02/04/21 08:08 BP 151/80 02/04/21 05:02 Pulse Ox 100 02/04/21 09:00 Results - Labs lab Results: Laboratory Results - last 24 hr 02/03/21 02/03/21 02/03/21 09:10 15:29 21:18 WBC RBC Hgb Hct MCV MCH MCHC RDW Plt Count Add Manual Diff Complete Total Counted 100 Seg Neuts % (Manual) 74.0 H Band Neutrophils % 3.0 Lymphocytes % (Manual) 22.0 Monocytes % (Manual) 1.0 Myelocytes % Nucleated RBC % Not Reportable Seg Neutrophils # Man 5.3 Band Neutrophils # 0.2 Lymphocytes # (Manual) 1.6 Abs React Lymphs (Man) 0.0 Monocytes # (Manual) 0.1 Eosinophils # (Manual) 0.0 Basophils # (Manual) 0.0 Metamyelocytes # 0.0 Myelocytes # 0.0 Promyelocytes # 0.0 Blast Cells # 0.0 Pathologist Review WBC Morphology Not Reportable Hypersegmented Neuts Not Reportable Hyposegmented Neuts Not Reportable Hypogranular Neuts Not Reportable Smudge Cells Not Reportable Toxic Granulation Not Reportable Toxic Vacuolation Not Reportable Dohle Bodies Not Reportable Pelger-Huet Anomaly Not Reportable Soham Rods Not Reportable Platelet Estimate Consistent w auto Clumped Platelets Not Reportable Plt Clumps, EDTA Not Reportable Large Platelets Rare Giant Platelets Not Reportable Platelet Satelliting Not Reportable Plt Morphology Comment Not Reportable RBC Morphology Not Reportable Dimorphic RBCs Not Reportable Polychromasia Not Reportable Hypochromasia Few Poikilocytosis Not Reportable Anisocytosis Not Reportable Microcytosis Not Reportable Macrocytosis Not Reportable Spherocytes Not Reportable Pappenheimer Bodies Not Reportable Sickle Cells Not Reportable Target Cells Not Reportable Tear Drop Cells Few Ovalocytes Not Reportable Helmet Cells Not Reportable Garcia-St. Ann Bodies Not Reportable Sawyer Rings Not Reportable [place] Cells Not Reportable Bite Cells Not Reportable Crenated Cell Not Reportable Elliptocytes Not Reportable Acanthocytes (Spur) Not Reportable Rouleaux Not Reportable Hemoglobin C Crystals Not Reportable Schistocytes Not Reportable Malaria parasites Not Reportable Percent Retic John Bodies Not Reportable Hem Pathologist Commnt No Fibrinogen Sodium Potassium Chloride Carbon Dioxide Anion Gap BUN Creatinine Estimated GFR BUN/Creatinine Ratio Glucose POC Glucose 328 H 359 H Uric Acid Calcium Total Bilirubin AST ALT Alkaline Phosphatase Total Protein Albumin Albumin/Globulin Ratio 02/04/21 02/04/21 02/04/21 04:39 04:39 09:12 WBC 8.6 RBC 2.75 L Hgb 7.3 L Hct 22.5 L MCV 82 MCH 27 L MCHC 32 RDW 18.9 H Plt Count 120 L Add Manual Diff Total Counted 100 Seg Neuts % (Manual) 75.0 H Band Neutrophils % 7.0 Lymphocytes % (Manual) 16.0 Monocytes % (Manual) 1.0 Myelocytes % 1.0 Nucleated RBC % 1.0 H Seg Neutrophils # Man 6.5 Band Neutrophils # 0.6 Lymphocytes # (Manual) 1.4 Abs React Lymphs (Man) 0.0 Monocytes # (Manual) 0.1 Eosinophils # (Manual) 0.0 Basophils # (Manual) 0.0 Metamyelocytes # 0.0 Myelocytes # 0.1 Promyelocytes # 0.0 Blast Cells # 0.0 Pathologist Review Cancelled WBC Morphology Not Reportable Hypersegmented Neuts Not Reportable Hyposegmented Neuts Not Reportable Hypogranular Neuts Not Reportable Smudge Cells Not Reportable Toxic Granulation Not Reportable Toxic Vacuolation Not Reportable Dohle Bodies Not Reportable Pelger-Huet Anomaly Not Reportable Soham Rods Not Reportable Platelet Estimate Cons Clumped Platelets Not Reportable Plt Clumps, EDTA Not Reportable Large Platelets Not Reportable Giant Platelets Not Reportable Platelet Satelliting Not Reportable Plt Morphology Comment Not Reportable RBC Morphology Not Reportable Dimorphic RBCs Not Reportable Polychromasia Not Reportable Hypochromasia 1+ Poikilocytosis Not Reportable Anisocytosis 2+ Microcytosis Not Reportable Macrocytosis Not Reportable Spherocytes Not Reportable Pappenheimer Bodies Not Reportable Sickle Cells Not Reportable Target Cells Few Tear Drop Cells 1+ Ovalocytes Rare Helmet Cells Not Reportable Garcia-St. Ann Bodies Not Reportable Sawyer Rings Not Reportable Nahomy Cells Not Reportable Bite Cells Not Reportable Crenated Cell Not Reportable Elliptocytes Rare Acanthocytes (Spur) Not Reportable Rouleaux Not Reportable Hemoglobin C Crystals Not Reportable Schistocytes Not Reportable Malaria parasites Not Reportable Percent Retic 0.29 L John Bodies Not Reportable Hem Pathologist Commnt Sent Fibrinogen Sodium 137 Potassium 3.8 Chloride 102.6 Carbon Dioxide 18 L Anion Gap 20 BUN 18 H Creatinine 0.6 Estimated GFR > 60 BUN/Creatinine Ratio 30 Glucose 400 H POC Glucose Uric Acid Calcium 8.8 Total Bilirubin 0.20 AST 22 ALT 12 Alkaline Phosphatase 184 H Total Protein 6.4 Albumin 3.0 L Albumin/Globulin Ratio 0.9 02/04/21 02/04/21 02/04/21 09:12 12:49 13:00 WBC RBC Hgb Hct MCV MCH MCHC RDW Plt Count Add Manual Diff Total Counted Seg Neuts % (Manual) Band Neutrophils % Lymphocytes % (Manual) Monocytes % (Manual) Myelocytes % Nucleated RBC % Seg Neutrophils # Man Band Neutrophils # Lymphocytes # (Manual) Abs React Lymphs (Man) Monocytes # (Manual) Eosinophils # (Manual) Basophils # (Manual) Metamyelocytes # Myelocytes # Promyelocytes # Blast Cells # Pathologist Review WBC Morphology Hypersegmented Neuts Hyposegmented Neuts Hypogranular Neuts Smudge Cells Toxic Granulation Toxic Vacuolation Dohle Bodies Pelger-Huet Anomaly Soham Rods Platelet Estimate Clumped Platelets Plt Clumps, EDTA Large Platelets Giant Platelets Platelet Satelliting Plt Morphology Comment RBC Morphology Dimorphic RBCs Polychromasia Hypochromasia Poikilocytosis Anisocytosis Microcytosis Macrocytosis Spherocytes Pappenheimer Bodies Sickle Cells Target Cells Tear Drop Cells Ovalocytes Helmet Cells Garcia-St. Ann Bodies Sawyer Rings [place] Cells Bite Cells Crenated Cell Elliptocytes Acanthocytes (Spur) Rouleaux Hemoglobin C Crystals Schistocytes Malaria parasites Percent Retic John Bodies Hem Pathologist Commnt Fibrinogen 528 H Sodium Potassium Chloride Carbon Dioxide Anion Gap BUN Creatinine Estimated GFR BUN/Creatinine Ratio Glucose POC Glucose 292 H Uric Acid 3.4 L Calcium Total Bilirubin AST ALT Alkaline Phosphatase Total Protein Albumin Albumin/Globulin Ratio
--- NOTE | 2021-02-04 19:45 | Cat Scan Report ---
CT ABDOMEN AND PELVIS WITH CONTRAST INDICATION: evaluate hepatosplenomegaly/lymphoma CONTRAST: 100 cc Omnipaque 300 IV COMPARISON: CTA chest 02/02/[address] scans at this location are performed using CT dose reduction for ALARA by means of automated e xposure control. FINDINGS: Lung bases show continued band of atelectasis in the left lower lobe and mild posterior low er lobe atelectatic changes bilaterally. No basilar nodules are seen. Lower mediastinum shows no obvi ous masses. No pneumoperitoneum is seen. Broad-based midline abdominal wall laxity is seen, especially in the umb ilical area. Liver is enlarged and elongated. Hepatic length measures 23.5 cm. Tiny probable cysts ar e seen in 2 locations. Spleen is not enlarged. Several gallstones are seen without obvious acute rey ge. No biliary dilatation is noted. I see no abnormalities of the pancreas or adrenals. Small bilater al renal cysts are seen. No urinary obstructive changes are noted. No evidence of bowel obstruction i s seen. Appendix appears within normal limits. No pelvic masses are noted. No free fluid is seen. No obvious lymphadenopathy is seen within the abdomen or pelvis. IMPRESSION: 1. Hepatomegaly 2. No obvious lymphadenopathy is seen 3. Cholelithiasis without acute change Signer Name: Chalo Grande MD Signed: 02/04/2021 7:41 PM Workstation Name: [id number]
[2021-02-04] MEDS: cefTRIAXone/NS 2 GM/100 ML 2 GM/100 ML BAG IV SCH (21:24)
[2021-02-05 06:23] LABS: Hemoglobin 7.1 gm/dl (10.1-14.3); Red Blood Count 2.75 M/mm3 (3.65-5.03)
[2021-02-05 06:24] LABS: Hematocrit 22.7 % (30.3-42.9); Mean Corpuscular HGB Conc 32 % (30-34); Mean Corpuscular Volume 83 fl (79-97); Platelet Count 123 K/mm3 (140-440); Red Cell Distribution Width 19.3 % (13.2-15.2)
[2021-02-05 06:33] LABS: INR 1.09 (0.87-1.13)
[2021-02-05 06:34] LABS: Partial Thromboplastin Time 30.2 Sec. (24.2-36.6)
[2021-02-05 06:46] LABS: Blood Urea Nitrogen 23 mg/dL (7-17); Calcium 8.6 mg/dL (8.4-10.2); Hemolysis Index 0
[2021-02-05 06:50] LABS: BUN/Creatinine Ratio 38
[2021-02-05] MEDS ORDERED: SODIUM CHLORIDE 0.9% 500 ML 500 ML IV SCH (08:00)
[2021-02-05] MEDS: INSULIN LISPRO 100 UNIT/ML SUB-Q SCH ×4 (08:29→21:54)
[2021-02-05] MEDS: SUCRALFATE 1 GM TAB PO SCH ×4 (08:32→21:52)
--- NOTE | 2021-02-05 10:17 | XRay Report ---
XR shoulder 2+V RT INDICATION / CLINICAL INFORMATION: pain. COMPARISON: None available. FINDINGS: BONES/JOINT(S): No acute fracture or subluxation. No significant degenerative changes. No focal bone lesions. SOFT TISSUES: No significant abnormality. ADDITIONAL FINDINGS: None. Signer Name: Hermelindo Jung MD Signed: 02/05/2021 10:13 AM Workstation Name: [id number]
--- NOTE | 2021-02-05 11:28 | Progress Note ---
Assessment and Plan Assessment and plan: 60-year-old female with history of diabetes presents with cough intermittent fever and shortness of breath and weakness for 2 weeks. Patient was discharged from [facility] recently. Patient was apparently admitted for urinary tract infection. When EMS arrived fever was higher than 1 and patient was tachycardic with a heart rate of 150s to 160s. Comfortable color sputum. Shortness of breath is intermittent. Patient is not Covid vaccinated. Language barrier present. No chest pain. No loss of taste or smell. In the emergency room patient fever of 100.7. Patient has past medical history significant for GERD anemia and peripheral neuropathy no nausea or vomiting. No hematemesis or melanotic stools. 02/03 awake and alert. Offers no specific complaints. Feels a whole lot better after blood transfusion. She denies any headache or dizziness. Denies chest pain or shortness of breath denies nausea or abdominal pain. Denies melena. Denies using NSAIDs. lab results reviewed. 12 point review of systems is essentially unremarkable except as stated above in the history of present illness Assessment and plan Severe anemia-recurrent Status post PRBC transfusion Posttransfusion hemoglobin 8.6 -down to 7.1 this morning Check stool for occult blood GI consulted and note reviewed and appreciated I discussed over the phone with Dr. Marcelo as patient apparently had an ap pointment today to see him He recommended peripheral smear to be seen by pathologist,(to rule out he mophagocytosis syndrome), also recommended to check uric acid, haptoglobin and reticulocyte count and SPEP He also is willing to see her once she is discharged SIRS Inflammatory markers reviewed-severely elevated D-dimer, CRP, LDH and ferritin Procalcitonin is markedly elevated Tested negative for COVID-19 CTA chest negative for PE Chest x-ray reviewed We will check venous Doppler of lower extremities due to markedly elevated D- dimer We will discontinue Decadron as patient is not hypoxic We will also discontinue neb treatments as the patient denies any shortness of breath Type 2 diabetes A1c A1C 7.0 Patient came from [facility] to this country about 2 months ago States she has not taken any diabetes medicine since she came here cont. insulin sliding scale coverage Fever/tachycardia/-improved She has been afebrile since yesterday Heart rate has improved Chest x-ray reviewed CTA chest reviewed Unclear etiology Rule out viral syndrome ID consulted -evaluation pending DVT prophylaxis We will discontinue subcu heparin as the platelets are trending down SCDs 02/05: Patient seen and examined, Still with some shortness of breath and today Complains right shoulder pain. Will obtain Xray, encourage ambulation, Obtain document if any from family about prior transfusion. She will need Insulin on discharge Awaiting Bone Marrow biopsy PER Pts Daughter She had two units Transfusion Transfusion at [facility] they were unsure as to where the source of her blood loss was coming from.. She unfortunately was not able to make an appointment that was set up for her. Anticipate discharge in a.m if no further transfusion is required she will definitely need outpatient follow-up with hydrodynamics teacher to follow through with all the outpatient work-up she is clinically stable at this time. Hospitalist Physical - Physical exam Narrative exam: General appearance: Present: no acute distress - EENT Eyes: PERRL, EOM intact ENT: hearing intact, clear oral mucosa - Neck Neck: supple, normal ROM - Respiratory Respiratory effort: normal Respiratory: bilateral: CTA - Cardiovascular Rhythm: regular Heart Sounds: Present: S1 & S2 Extremities: non pitting edema - Gastrointestinal General gastrointestinal: Present: soft, non-tender Rectal Exam: deferred - Integumentary Integumentary: clear - Musculoskeletal Musculoskeletal: strength equal bilaterally - Neurologic Neurologic: no focal deficits - Psychiatric Psychiatric: appropriate mood/affect - Constitutional Vitals: Temp Pulse Resp BP Pulse Ox 97.7 F 56 L 18 133/65 100 02/05/21 05:28 02/05/21 05:28 02/05/21 05:28 02/05/21 05:28 02/05/21 08:33 General appearance: Present: no acute distress Results - Labs CBC & Chem 7: 02/05/21 05:32 02/05/21 05:32 Labs: Laboratory Last Values WBC 7.4 K/mm3 (4.5-11.0) 02/05/21 05:32 RBC 2.75 M/mm3 (3.65-5.03) L 02/05/21 05:32 Hgb 7.1 gm/dl (10.1-14.3) L 02/05/21 05:32 Hct 22.7 % (30.3-42.9) L 02/05/21 05:32 MCV 83 fl (79-97) 02/05/21 05:32 MCH 26 pg (28-32) L 02/05/21 05:32 MCHC 32 % (30-34) 02/05/21 05:32 RDW 19.3 % (13.2-15.2) H 02/05/21 05:32 Plt Count 123 K/mm3 (140-440) L 02/05/21 05:32 Add Manual Diff Complete 02/03/21 09:10 Total Counted 100 02/04/21 04:39 Seg Neuts % (Manual) 75.0 % (40.0-70.0) H 02/04/21 04:39 Band Neutrophils % 7.0 % 02/04/21 04:39 Lymphocytes % (Manual) 16.0 % (13.4-35.0) 02/04/21 04:39 Monocytes % (Manual) 1.0 % (0.0-7.3) 02/04/21 04:39 Metamyelocytes % 1.0 % 02/02/21 08:00 Myelocytes % 1.0 % 02/04/21 04:39 Nucleated RBC % 1.0 % (0.0-0.9) H 02/04/21 04:39 Seg Neutrophils # Man 6.5 K/mm3 (1.8-7.7) 02/04/21 04:39 Band Neutrophils # 0.6 K/mm3 02/04/21 04:39 Lymphocytes # (Manual) 1.4 K/mm3 (1.2-5.4) 02/04/21 04:39 Abs React Lymphs (Man) 0.0 K/mm3 02/04/21 04:39 Monocytes # (Manual) 0.1 K/mm3 (0.0-0.8) 02/04/21 04:39 Eosinophils # (Manual) 0.0 K/mm3 (0.0-0.4) 02/04/21 04:39 Basophils # (Manual) 0.0 K/mm3 (0.0-0.1) 02/04/21 04:39 Metamyelocytes # 0.0 K/mm3 02/04/21 04:39 Myelocytes # 0.1 K/mm3 02/04/21 04:39 Promyelocytes # 0.0 K/mm3 02/04/21 04:39 Blast Cells # 0.0 K/mm3 02/04/21 04:39 Pathologist Review Cancelled 02/04/21 04:39 WBC Morphology Not Reportable 02/04/21 04:39 Hypersegmented Neuts Not Reportable 02/04/21 04:39 Hyposegmented Neuts Not Reportable 02/04/21 04:39 Hypogranular Neuts Not Reportable 02/04/21 04:39 Smudge Cells Not Reportable 02/04/21 04:39 Toxic Granulation Not Reportable 02/04/21 04:39 Toxic Vacuolation Not Reportable 02/04/21 04:39 Dohle Bodies Not Reportable 02/04/21 04:39 Pelger-Huet Anomaly Not Reportable 02/04/21 04:39 Soham Rods Not Reportable 02/04/21 04:39 Platelet Estimate Cons 02/04/21 04:39 Clumped Platelets Not Reportable 02/04/21 04:39 Plt Clumps, EDTA Not Reportable 02/04/21 04:39 Large Platelets Not Reportable 02/04/21 04:39 Giant Platelets Not Reportable 02/04/21 04:39 Platelet Satelliting Not Reportable 02/04/21 04:39 Plt Morphology Comment Not Reportable 02/04/21 04:39 RBC Morphology Not Reportable 02/04/21 04:39 Dimorphic RBCs Not Reportable 02/04/21 04:39 Polychromasia Not Reportable 02/04/21 04:39 Hypochromasia 1+ 02/04/21 04:39 Poikilocytosis Not Reportable 02/04/21 04:39 Anisocytosis 2+ 02/04/21 04:39 Microcytosis Not Reportable 02/04/21 04:39 Macrocytosis Not Reportable 02/04/21 04:39 Spherocytes Not Reportable 02/04/21 04:39 Pappenheimer Bodies Not Reportable 02/04/21 04:39 Sickle Cells Not Reportable 02/04/21 04:39 Target Cells Few 02/04/21 04:39 Tear Drop Cells 1+ 02/04/21 04:39 Ovalocytes Rare 02/04/21 04:39 Helmet Cells Not Reportable 02/04/21 04:39 Garcia-Gypsum Bodies Not Reportable 02/04/21 04:39 [place] Rings Not Reportable 02/04/21 04:39 [place] Cells Not Reportable 02/04/21 04:39 Bite Cells Not Reportable 02/04/21 04:39 Crenated Cell Not Reportable 02/04/21 04:39 Elliptocytes Rare 02/04/21 04:39 Acanthocytes (Spur) Not Reportable 02/04/21 04:39 Rouleaux Not Reportable 02/04/21 04:39 Hemoglobin C Crystals Not Reportable 02/04/21 04:39 Schistocytes Not Reportable 02/04/21 04:39 Malaria parasites Not Reportable 02/04/21 04:39 Percent Retic 0.29 % (0.78-2.58) L 02/04/21 09:12 John Bodies Not Reportable 02/04/21 04:39 Hem Pathologist Commnt Sent 02/04/21 04:39 PT 15.3 Sec. (12.2-14.9) H 02/05/21 05:32 INR 1.09 (0.87-1.13) 02/05/21 05:32 APTT 30.2 Sec. (24.2-36.6) 02/05/21 05:32 Fibrinogen 528 mg/dl (211-480) H 02/04/21 13:00 D-Dimer > 60501 ng/mlDDU (0-234) H 02/02/21 08:00 VBG pH 7.436 (7.320-7.420) H 02/02/21 08:00 Sodium 137 mmol/L (137-145) 02/05/21 05:32 Potassium 3.7 mmol/L (3.6-5.0) 02/05/21 05:32 Chloride 103.4 mmol/L (98-107) 02/05/21 05:32 Carbon Dioxide 19 mmol/L (22-30) L 02/05/21 05:32 Anion Gap 18 mmol/L 02/05/21 05:32 BUN 23 mg/dL (7-17) H 02/05/21 05:32 Creatinine 0.6 mg/dL (0.6-1.2) 02/05/21 05:32 Estimated GFR > 60 ml/min 02/05/21 05:32 BUN/Creatinine Ratio 38 % 02/05/21 05:32 Glucose 269 mg/dL (65-100) H 02/05/21 05:32 POC Glucose 259 mg/dL (70-105) H 02/05/21 08:04 Hemoglobin A1c 7.0 % (4-6) H 02/03/21 09:10 Lactic Acid 1.80 mmol/L (0.7-2.0) 02/02/21 14:07 Uric Acid 3.4 mg/dL (3.5-7.6) L 02/04/21 09:12 Calcium 8.6 mg/dL (8.4-10.2) 02/05/21 05:32 Phosphorus 3.80 mg/dL (2.5-4.5) 02/02/21 08:00 Magnesium 1.60 mg/dL (1.7-2.3) L 02/02/21 08:00 Iron 110 ug/dL (37-170) 02/03/21 09:10 TIBC 155 mcg/dL (250-450) L 02/03/21 09:10 % Saturation 70.97 % 02/03/21 09:10 Transferrin 116 mg/dl (192-382) L 02/03/21 09:10 Ferritin 33248.0 ng/mL (10.0-200.0) H 02/02/21 08:00 Total Bilirubin 0.20 mg/dL (0.1-1.2) 02/04/21 04:39 AST 22 units/L (5-40) 02/04/21 04:39 ALT 12 units/L (7-56) 02/04/21 04:39 Alkaline Phosphatase 184 units/L (35-129) H 02/04/21 04:39 Lactate Dehydrogenase 2476 units/L (91-180) H 02/02/21 08:00 C-Reactive Protein 34.90 mg/dL (0.00-1.30) H 02/02/21 08:00 Total Protein 6.4 g/dL (6.3-8.2) 02/04/21 04:39 Albumin 3.0 g/dL (3.9-5) L 02/04/21 04:39 Albumin/Globulin Ratio 0.9 % 02/04/21 04:39 Triglycerides 182 mg/dL (2-149) H 02/04/21 13:00 Vitamin B12 1010 pg/mL (211-911) H 02/03/21 09:10 Procalcitonin 20.88 ng/mL (<0.15) 02/02/21 08:00 Urine Color Yellow (Yellow) 02/02/21 Unknown Urine Turbidity Clear (Clear) 02/02/21 Unknown Urine pH 5.0 (5.0-7.0) 02/02/21 Unknown Ur Specific [place] 1.018 (1.003-1.030) 02/02/21 Unknown Urine Protein 30 mg/dl mg/dL (Negative) 02/02/21 Unknown Urine Glucose (UA) 150 mg/dL (Negative) 02/02/21 Unknown Urine Ketones Neg mg/dL (Negative) 02/02/21 Unknown Urine Blood Sm (Negative) 02/02/21 Unknown Urine Nitrite Neg (Negative) 02/02/21 Unknown Urine Bilirubin Neg (Negative) 02/02/21 Unknown Urine Urobilinogen < 2.0 mg/dL (<2.0) 02/02/21 Unknown Ur Leukocyte Esterase Neg (Negative) 02/02/21 Unknown Urine WBC (Auto) 5.0 /HPF (0.0-6.0) 02/02/21 Unknown Urine RBC (Auto) 3.0 /HPF (0.0-6.0) 02/02/21 Unknown U Epithel Cells (Auto) < 1.0 /HPF (0-13.0) 02/02/21 Unknown Urine Mucus Few /HPF 02/02/21 Unknown Nasal Screen MRSA (PCR) Negative (Negative) 02/02/21 16:38 Coronavirus (PCR) Negative (Negative) 02/02/21 Unknown HIV 1&2 Antibody Rapid Non react (Non React) 02/04/21 13:00 HIV P24 Antigen Non react (Non React) 02/04/21 13:00 Blood Type A POSITIVE 02/03/21 00:11 Antibody Screen Negative 02/03/21 00:11 Direct Antiglob Test Negative 02/05/21 05:32 JEANNETTE, Poly Interpret Negative 02/05/21 05:32 Crossmatch See Detail 02/03/21 00:11 Microbiology: Microbiology 02/02/21 08:00 Peripheral/Venous Blood Culture - Preliminary NO GROWTH AFTER 72 HOURS 02/02/21 08:00 Peripheral/Venous Blood Culture - Preliminary NO GROWTH AFTER 72 HOURS 02/02/21 12:00 Urine,Clean Catch Urine Culture - Final NO GROWTH AFTER 48 HOURS Padron/IV: Voiding Method Toilet Active Medications - Current Medications Current Medications: Generic Name Dose Route Start Last Admin Trade Name Freq PRN Reason Stop Dose Admin Acetaminophen 650 mg 02/02/21 21:04 02/02/21 22:50 Acetaminophen 325 Mg Tab PO 650 mg Q4H PRN Administration Pain MILD(1-3)/Fever >100.5/GOLDMAN Albuterol 2.5 mg 02/02/21 21:24 Albuterol 2.5 Mg/3 Ml Nebu IH Q3HRT PRN Wheezing Famotidine 20 mg 02/04/21 10:00 02/04/21 21:24 Famotidine 20 Mg Tab PO 20 mg BID MARY LOU Administration Gabapentin 100 mg 02/02/21 22:00 02/04/21 21:24 Gabapentin 100 Mg Cap PO 100 mg BID MARY LOU Administration Ceftriaxone Sodium 2 gm in 100 mls @ 200 mls/hr 02/02/21 22:00 02/04/21 22:34 Rocephin/Ns 2 Gm/100 Ml IV Infused Q24H MARY LOU Infusion Protocol Sodium Chloride 500 mls @ 0 mls/hr 02/05/21 08:00 Nacl 0.9% 500 Ml IV 02/05/21 18:00 ONCE@0800 MARY LOU As Directed Insulin Human Lispro 0 unit 02/03/21 09:30 02/05/21 08:29 Insulin Lispro 100 Unit/Ml SUB-Q 6 unit ACHS MARY LOU Administration Protocol Metoclopramide HCl 10 mg 02/02/21 21:05 Metoclopramide 10 Mg/2 Ml Inj IV Q6H PRN Nausea And Vomiting Ondansetron HCl 4 mg 02/02/21 21:04 02/04/21 22:45 Ondansetron 4 Mg/2 Ml Inj IV 4 mg Q3H PRN Administration Nausea And Vomiting Oxycodone/Acetaminophen 1 tab 02/02/21 21:05 Oxycodone /Acetaminophen 5-325mg Tab PO Q6H PRN Pain, Moderate (4-6) Sodium Chloride 10 ml 02/02/21 22:00 02/04/21 21:26 Sodium Chloride 0.9% 10 Ml Flush Syringe IV 10 ml BID MARY LOU Administration Sodium Chloride 10 ml 02/02/21 21:04 Sodium Chloride 0.9% 10 Ml Flush Syringe IV PRN PRN LINE FLUSH Sucralfate 1 gm 02/02/21 22:00 02/04/21 21:24 Sucralfate 1 Gm Tab PO 1 gm ACHS MARY LOU Administration Nutrition/Malnutrition Assess - Dietary Evaluation Nutrition/Malnutrition Findings: Nutrition Notes Start: 02/03/21 11:07 Freq: Status: Active Protocol: Document 02/04/21 10:35 CRISTIAN (Rec: 02/04/21 11:05 CRISTIAN [id number]) Nutrition Notes Initial or Follow up Reassessment Current Diagnosis Diabetes Other Pertinent Diagnosis SIRS, Anemia Current Diet Consistent Carbohydrates and Dietary Supplements (since L 02/04). Labs/Tests 02/04: CO2 18, BUN 18, Glu 400 , Uric ac 3.4, Alk Phos 184, Alb 3.0. Pertinent Medications 02/04: Insulin, others nutritionally unremarkable. Height 5 ft 6 in Weight 106.594 kg [place] Body Weight (kg) 59.09 BMI 37.9 Weight Status Obese Subjective/Other Information RD consult for routine F/U. Change to Consistent Carbohydrates Diet and dietary Supplements TID ordered. Percent of energy/protein needs met: Prescribed Consistent Carbohydrates Diet provides for energy/protein needs (2, 061 Kcal/91 g) during LOS. GI Symptoms None Food Allergy No Skin Integrity/Comment Clear, warm, dry. Minimum of two criteria No #1 Nutrition Diagnosis Inadequate protein-energy intake Etiology Acute illness As Evidenced by Signs and Symptoms Pt reported lack of appetite for 3 months Is patient on ventilator? No Is Patient Ambulatory and/or Out of Bed Yes REE-([facility]-ambulatory/OOB) [ [id number] [id number]] Calculation Used for Recommendations Kcal/kg Additional Notes Protein: 1.2-1.5 g/Kg; 71-89 g /day (from IBW+critical care). Fluids: 1 ml/Kcal, or as per MD. Nutrition Intervention Change Diet Order: Continue Consistent Carbohydrates Diet, Add Supplement/Snack (indicate name/kcal 8.1 fl oz Glucerna; TID. /protein ) Provides kCal: 660 Provides Protein (gm) 30 Goal #1 Maintain body weight within +/ -3% of current BWt during LOS. Goal #2 Reach and maintain acceptable chemistry lab values during LOS. Follow-Up By: 02/12/21 Additional Comments Continue monitoring food tolerance, %PO intake of meals , Hydration, and BM.
[2021-02-05] MEDS: GABAPENTIN 100 MG CAP PO SCH ×2 (12:55→21:53)
[2021-02-05] MEDS: FAMOTIDINE 20 MG TAB PO SCH ×2 (12:55→21:53)
--- NOTE | 2021-02-05 14:17 | Progress Note ---
Assessment and Plan Cultures: 02/02/2021 blood culture: No growth 02/02/2021 urine culture: No growth COVID-19 PCR: Negative MRSA nasal PCR: Negative A/P: 60-year-old female with diabetes mellitus from [facility] with: #Recurrent fever syndrome: Recent hospitalization at [facility] with pyelonephritis, treated with empiric antibiotics. UA without pyuria, no leukocytosis here, labs revealed severe anemia as well as thrombocytopenia. In addition, CRP, procalcitonin are high, ferritin is extremely elevated at 17K. ?HLH. Due to being from [facility], she did get a malaria smear done at [facility] which was negative. CT abdomen pelvis with IV contrast here showed hepatomegaly. Hematology following, planned for BMBx. #Elevated d-dimer #Uncontrolled diabetes Recs: -Ceftriaxone discontinued -F/U malaria antigen -f/u triglycerides, fibrinogen, soluble IL-2 receptor -f/u EBV, CMV serologies -f/u HIV ordered, verbal consent obtained -awaiting bone marrow biopsy Martina Krishnan MD, FACP, [facility] ([facility]) O: [phone] F: [phone] Subjective Date of service: 02/05/21 Interval history: No fever. No new complaints. Objective - Exam Narrative Exam: Physical Exam: Constitutional: Alert, cooperative. No acute distress Head, Ears, Nose: Normocephalic, atraumatic. External ears, nose normal Eyes: Conjunctivae/corneas clear. No icterus. No ptosis. Neck: Supple, no meningeal signs Oral: dentition fair, no thrush Cardiovascular: S1, S2 + Respiratory: Good air entry, clear to auscultation bilaterally GI: Soft, non-tender; bowel sounds normal. No peritoneal signs Musculoskeletal: No pedal edema, no cyanosis. Skin: No rash or abscess Hem/Lymphatic: No palpable cervical or supraclavicular nodes. No lymphangitis Psych: Mood ok. Affect normal Neurological: Awake, alert, oriented. No gross abnormality - Constitutional Vitals: Vital Signs Temp Pulse Resp BP Pulse Ox 98.0 F 64 18 128/52 100 02/05/21 14:11 02/05/21 14:11 02/05/21 14:11 02/05/21 14:11 02/05/21 14:11 Temperature -Last 24 Hours Temperature 98.0 F Temperature 98.0 F Temperature 97.9 F Temperature 97.9 F Temperature 97.9 F Temperature 97.7 F Temperature 98.3 F Temperature 98.9 F - Labs CBC & Chem 7: 02/05/21 05:32 02/05/21 05:32 Labs: Abnormal lab results 02/03/21 02/04/21 02/04/21 Range/Units 00:11 13:00 16:00 RBC (3.65-5.03) M/mm3 Hgb (10.1-14.3) gm/dl Hct (30.3-42.9) % MCH (28-32) pg RDW (13.2-15.2) % Plt Count (140-440) K/mm3 PT (12.2-14.9) Sec. Carbon Dioxide (22-30) mmol/L BUN (7-17) mg/dL Glucose (65-100) mg/dL POC Glucose 315 H (70-105) mg/dL Triglycerides 182 H (2-149) mg/dL Crossmatch See Detail 02/04/21 02/05/21 02/05/21 Range/Units 21:55 05:32 05:32 RBC 2.75 L (3.65-5.03) M/mm3 Hgb 7.1 L (10.1-14.3) gm/dl Hct 22.7 L (30.3-42.9) % MCH 26 L (28-32) pg RDW 19.3 H (13.2-15.2) % Plt Count 123 L (140-440) K/mm3 PT (12.2-14.9) Sec. Carbon Dioxide 19 L (22-30) mmol/L BUN 23 H (7-17) mg/dL Glucose 269 H (65-100) mg/dL POC Glucose 412 H (70-105) mg/dL Triglycerides (2-149) mg/dL Crossmatch 02/05/21 02/05/21 02/05/21 Range/Units 05:32 08:04 12:17 RBC (3.65-5.03) M/mm3 Hgb (10.1-14.3) gm/dl Hct (30.3-42.9) % MCH (28-32) pg RDW (13.2-15.2) % Plt Count (140-440) K/mm3 PT 15.3 H (12.2-14.9) Sec. Carbon Dioxide (22-30) mmol/L BUN (7-17) mg/dL Glucose (65-100) mg/dL POC Glucose 259 H 140 H (70-105) mg/dL Triglycerides (2-149) mg/dL Crossmatch
--- NOTE | 2021-02-05 14:56 | Hem/Onc Progress Note ---
Subjective Date of service: 02/05/21 Interval history: Heme progress note televisit via tsrd CPT: 83114 Dx: anemia This is a 60yo female who presents to the ER via EMS with complaints of SOB, fever, cough, and weakness Recent admission at [facility] for UTI Recently moved from [facility], tested for Malaria at [facility] which was negative Language barrier, history obtained by daughter Salena Past medical h/o diabetes Complaints of iliac crest pain and weight loss On admission noted to have anemia hct 17.9, and high ferritin 17,843, high ddimer Chest Xray negative Chest CT negative Chest/abd/pelvis CT c/w hepatomegaly --- feels better today than yesterday DATA REVIEWED BELOW IMP: Severe anemia with evidence of bone marrow dysfunction R/o sickle cell anemia R/o myeloma Doubt HLH, but r/o MDS/lymphoma HIV negative REC/PLAN: Transfuse 1 unit RBC whenever hct<23 RBC transfusion today AM labs to include repeat ferritin, vitb12 Pending hgb electrophoresis, malaria thick prep, spep results Pending bone marrow biopsy today by Dr. Keith Gaytan if possible Laboratory Last Values WBC 7.4 K/mm3 (4.5-11.0) 02/05/21 05:32 Hgb 7.1 gm/dl (10.1-14.3) L 02/05/21 05:32 Hct 22.7 % (30.3-42.9) L 02/05/21 05:32 Plt Count 123 K/mm3 (140-440) L 02/05/21 05:32 Percent Retic 0.29 % (0.78-2.58) L 02/04/21 09:12 PT 15.3 Sec. (12.2-14.9) H 02/05/21 05:32 INR 1.09 (0.87-1.13) 02/05/21 05:32 APTT 30.2 Sec. (24.2-36.6) 02/05/21 05:32 Fibrinogen 528 mg/dl (211-480) H 02/04/21 13:00 D-Dimer > 07376 ng/mlDDU (0-234) H 02/02/21 08:00 Ferritin 01956.0 ng/mL (10.0-200.0) H 02/02/21 08:00 Alkaline Phosphatase 184 units/L (35-129) H 02/04/21 04:39 Lactate Dehydrogenase 2476 units/L (91-180) H 02/02/21 08:00 C-Reactive Protein 34.90 mg/dL (0.00-1.30) H 02/02/21 08:00 Vitamin B12 1010 pg/mL (211-911) H 02/03/21 09:10 Coronavirus (PCR) Negative (Negative) 02/02/21 Unknown HIV 1&2 Antibody Rapid Non react (Non React) 02/04/21 13:00 HIV P24 Antigen Non react (Non React) 02/04/21 13:00 Direct Antiglob Test Negative 02/05/21 05:32 JEANNETTE, Poly Interpret Negative 02/05/21 05:32 Crossmatch See Detail 02/03/21 00:11 Objective - Constitutional Vitals: Last Vital Signs Temp 98.5 F 02/05/21 14:39 Pulse 68 02/05/21 14:39 Resp 16 02/05/21 14:39 BP 132/55 02/05/21 14:39 Pulse Ox 100 02/05/21 14:39 - Labs Lab Results: Laboratory Results - last 24 hr 02/03/21 02/04/21 02/04/21 00:11 13:00 16:00 WBC RBC Hgb Hct MCV MCH MCHC RDW Plt Count PT INR APTT Sodium Potassium Chloride Carbon Dioxide Anion Gap BUN Creatinine Estimated GFR BUN/Creatinine Ratio Glucose POC Glucose 315 H Calcium HIV 1&2 Antibody Rapid Non react HIV P24 Antigen Non react Blood Type A POSITIVE Antibody Screen Negative Direct Antiglob Test JEANNETTE, Poly Interpret Crossmatch See Detail 02/04/21 02/05/21 02/05/21 21:55 05:32 05:32 WBC 7.4 RBC 2.75 L Hgb 7.1 L Hct 22.7 L MCV 83 MCH 26 L MCHC 32 RDW 19.3 H Plt Count 123 L PT INR APTT Sodium 137 Potassium 3.7 Chloride 103.4 Carbon Dioxide 19 L Anion Gap 18 BUN 23 H Creatinine 0.6 Estimated GFR > 60 BUN/Creatinine Ratio 38 Glucose 269 H POC Glucose 412 H Calcium 8.6 HIV 1&2 Antibody Rapid HIV P24 Antigen Blood Type Antibody Screen Direct Antiglob Test JEANNETTE, Poly Interpret Crossmatch 11/02/05/21 02/05/21 05:32 05:32 08:04 WBC RBC Hgb Hct MCV MCH MCHC RDW Plt Count PT 15.3 H INR 1.09 APTT 30.2 Sodium Potassium Chloride Carbon Dioxide Anion Gap BUN Creatinine Estimated GFR BUN/Creatinine Ratio Glucose POC Glucose 259 H Calcium HIV 1&2 Antibody Rapid HIV P24 Antigen Blood Type Antibody Screen Direct Antiglob Test Negative JEANNETTE, Poly Interpret Negative Crossmatch 02/05/21 12:17 WBC RBC Hgb Hct MCV MCH MCHC RDW Plt Count PT INR APTT Sodium Potassium Chloride Carbon Dioxide Anion Gap BUN Creatinine Estimated GFR BUN/Creatinine Ratio Glucose POC Glucose 140 H Calcium HIV 1&2 Antibody Rapid HIV P24 Antigen Blood Type Antibody Screen Direct Antiglob Test JEANNETTE, Poly Interpret Crossmatch Medications & Allergies - Medications Allergies/Adverse Reactions: Allergies No Known Allergies Allergy (Unverified 02/02/21 08:26) Home Medications: Home Medications Medication Instructions Recorded Confirmed Last Taken Type Ferrous Sulfate [Slow Release Iron 250 mg PO BID 02/02/21 02/02/21 Unknown History 250 MG] Gabapentin [Neurontin] 100 mg PO BID 02/02/21 02/02/21 Unknown History Sucralfate [Carafate] 1 gm PO ACHS 02/02/21 02/02/21 Unknown History Active Medications: Generic Name Dose Route Start Last Admin Trade Name Richardq PRN Reason Stop Dose Admin Acetaminophen 650 mg 02/02/21 21:04 02/02/21 22:50 Acetaminophen 325 Mg Tab PO 650 mg Q4H PRN Administration Pain MILD(1-3)/Fever >100.5/GOLDMAN Albuterol 2.5 mg 02/02/21 21:24 Albuterol 2.5 Mg/3 Ml Nebu IH Q3HRT PRN Wheezing Famotidine 20 mg 02/04/21 10:00 02/05/21 12:55 Famotidine 20 Mg Tab PO 20 mg BID MARY LOU Administration Gabapentin 100 mg 02/02/21 22:00 02/05/21 12:55 Gabapentin 100 Mg Cap PO 100 mg BID MARY LOU Administration Sodium Chloride 500 mls @ 0 mls/hr 02/05/21 08:00 02/05/21 13:18 Nacl 0.9% 500 Ml IV 02/05/21 18:00 10 mls/hr ONCE@0800 MARY LOU Administration As Directed Insulin Human Lispro 0 unit 02/03/21 09:30 02/05/21 12:32 Insulin Lispro 100 Unit/Ml SUB-Q Not Given ACHS MARY LOU Protocol Metoclopramide HCl 10 mg 02/02/21 21:05 Metoclopramide 10 Mg/2 Ml Inj IV Q6H PRN Nausea And Vomiting Ondansetron HCl 4 mg 02/02/21 21:04 02/04/21 22:45 Ondansetron 4 Mg/2 Ml Inj IV 4 mg Q3H PRN Administration Nausea And Vomiting Oxycodone/Acetaminophen 1 tab 02/02/21 21:05 Oxycodone /Acetaminophen 5-325mg Tab PO Q6H PRN Pain, Moderate (4-6) Sodium Chloride 10 ml 02/02/21 22:00 02/05/21 12:55 Sodium Chloride 0.9% 10 Ml Flush Syringe IV 10 ml BID MARY LOU Administration Sodium Chloride 10 ml 02/02/21 21:04 Sodium Chloride 0.9% 10 Ml Flush Syringe IV PRN PRN LINE FLUSH Sucralfate 1 gm 02/02/21 22:00 02/05/21 12:55 Sucralfate 1 Gm Tab PO 1 gm ACHS MARY LOU Administration
--- NOTE | 2021-02-06 07:55 | Progress Note ---
Assessment and Plan Assessment and plan: Assessment and plan: 60-year-old female with history of diabetes presents with cough intermittent fever and shortness of breath and weakness for 2 weeks. Patient was discharged from [facility] recently. Patient was apparently admitted for urinary tract infection. When EMS arrived fever was higher than 1 and patient was tachycardic with a heart rate of 150s to 160s. Comfortable color sputum. Shortness of breath is intermittent. Patient is not Covid vaccinated. Language barrier present. No chest pain. No loss of taste or smell. In the emergency room patient fever of 100.7. Patient has past medical history significant for GERD anemia and peripheral neuropathy no nausea or vomiting. No hematemesis or melanotic stools. 02/03 awake and alert. Offers no specific complaints. Feels a whole lot better after blood transfusion. She denies any headache or dizziness. Denies chest pain or shortness of breath denies nausea or abdominal pain. Denies melena. Denies using NSAIDs. lab results reviewed. 12 point review of systems is essentially unremarkable except as stated above in the history of present illness Assessment and plan Severe anemia-recurrent Status post PRBC transfusion Posttransfusion hemoglobin 8.6 -down to 7.1 this morning Check stool for occult blood GI consulted and note reviewed and appreciated I discussed over the phone with Dr. Marcelo as patient apparently had an appointment today to see him He recommended peripheral smear to be seen by pathologist,(to rule out hemophagocytosis syndrome), also recommended to check uric acid, haptoglobin and reticulocyte count and SPEP He also is willing to see her once she is discharged SIRS Inflammatory markers reviewed-severely elevated D-dimer, CRP, LDH and ferritin Procalcitonin is markedly elevated Tested negative for COVID-19 CTA chest negative for PE Chest x-ray reviewed We will check venous Doppler of lower extremities due to markedly elevated D- dimer We will discontinue Decadron as patient is not hypoxic We will also discontinue neb treatments as the patient denies any shortness of breath Type 2 diabetes A1c A1C 7.0 Patient came from [facility] to this country about 2 months ago States she has not taken any diabetes medicine since she came here cont. insulin sliding scale coverage Fever/tachycardia/-improved She has been afebrile since yesterday Heart rate has improved Chest x-ray reviewed CTA chest reviewed Unclear etiology Rule out viral syndrome ID consulted -evaluation pending DVT prophylaxis We will discontinue subcu heparin as the platelets are trending down SCDs 02/05: Patient seen and examined, Still with some shortness of breath and today Complains right shoulder pain. Will obtain Xray, encourage ambulation, Obtain document if any from family about prior transfusion. She will need Insulin on discharge Awaiting Bone Marrow biopsy PER Pts Daughter She had two units Transfusion Transfusion at [facility] they were unsure as to where the source of her blood loss was coming from.. She unfortunately was not able to make an appointment that was set up for her. Anticipate discharge in a.m if no further transfusion is required she will definitely need outpatient follow-up with [employer] to follow through with all the outpatient work-up she is clinically stable at this time. Hospitalist Physical - Physical exam Narrative exam: - Physical exam Narrative exam: General appearance: Present: no acute distress - EENT Eyes: PERRL, EOM intact ENT: hearing intact, clear oral mucosa - Neck Neck: supple, normal ROM - Respiratory Respiratory effort: normal Respiratory: bilateral: CTA - Cardiovascular Rhythm: regular Heart Sounds: Present: S1 & S2 Extremities: non pitting edema - Gastrointestinal General gastrointestinal: Present: soft, non-tender Rectal Exam: deferred - Integumentary Integumentary: clear - Musculoskeletal Musculoskeletal: strength equal bilaterally - Neurologic Neurologic: no focal deficits - Psychiatric Psychiatric: appropriate mood/affect - Constitutional Vitals: Temp Pulse Resp BP Pulse Ox 98.1 F 57 L 18 136/63 96 02/06/21 05:39 02/06/21 05:39 02/06/21 05:39 02/06/21 05:39 02/06/21 05:39 General appearance: Present: no acute distress Results - Labs CBC & Chem 7: 02/05/21 05:32 02/05/21 05:32 Labs: Laboratory Last Values WBC 7.4 K/mm3 (4.5-11.0) 02/05/21 05:32 RBC 2.75 M/mm3 (3.65-5.03) L 02/05/21 05:32 Hgb 7.1 gm/dl (10.1-14.3) L 02/05/21 05:32 Hct 22.7 % (30.3-42.9) L 02/05/21 05:32 MCV 83 fl (79-97) 02/05/21 05:32 MCH 26 pg (28-32) L 02/05/21 05:32 MCHC 32 % (30-34) 02/05/21 05:32 RDW 19.3 % (13.2-15.2) H 02/05/21 05:32 Plt Count 123 K/mm3 (140-440) L 02/05/21 05:32 Add Manual Diff Complete 02/03/21 09:10 Total Counted 100 02/04/21 04:39 Seg Neuts % (Manual) 75.0 % (40.0-70.0) H 02/04/21 04:39 Band Neutrophils % 7.0 % 02/04/21 04:39 Lymphocytes % (Manual) 16.0 % (13.4-35.0) 02/04/21 04:39 Monocytes % (Manual) 1.0 % (0.0-7.3) 02/04/21 04:39 Metamyelocytes % 1.0 % 02/02/21 08:00 Myelocytes % 1.0 % 02/04/21 04:39 Nucleated RBC % 1.0 % (0.0-0.9) H 02/04/21 04:39 Seg Neutrophils # Man 6.5 K/mm3 (1.8-7.7) 02/04/21 04:39 Band Neutrophils # 0.6 K/mm3 02/04/21 04:39 Lymphocytes # (Manual) 1.4 K/mm3 (1.2-5.4) 02/04/21 04:39 Abs React Lymphs (Man) 0.0 K/mm3 02/04/21 04:39 Monocytes # (Manual) 0.1 K/mm3 (0.0-0.8) 02/04/21 04:39 Eosinophils # (Manual) 0.0 K/mm3 (0.0-0.4) 02/04/21 04:39 Basophils # (Manual) 0.0 K/mm3 (0.0-0.1) 02/04/21 04:39 Metamyelocytes # 0.0 K/mm3 02/04/21 04:39 Myelocytes # 0.1 K/mm3 02/04/21 04:39 Promyelocytes # 0.0 K/mm3 02/04/21 04:39 Blast Cells # 0.0 K/mm3 02/04/21 04:39 Pathologist Review Cancelled 02/04/21 04:39 WBC Morphology Not Reportable 02/04/21 04:39 Hypersegmented Neuts Not Reportable 02/04/21 04:39 Hyposegmented Neuts Not Reportable 02/04/21 04:39 Hypogranular Neuts Not Reportable 02/04/21 04:39 Smudge Cells Not Reportable 02/04/21 04:39 Toxic Granulation Not Reportable 02/04/21 04:39 Toxic Vacuolation Not Reportable 02/04/21 04:39 Dohle Bodies Not Reportable 02/04/21 04:39 Pelger-Huet Anomaly Not Reportable 02/04/21 04:39 Soham Rods Not Reportable 02/04/21 04:39 Platelet Estimate Cons 02/04/21 04:39 Clumped Platelets Not Reportable 02/04/21 04:39 Plt Clumps, EDTA Not Reportable 02/04/21 04:39 Large Platelets Not Reportable 02/04/21 04:39 Giant Platelets Not Reportable 02/04/21 04:39 Platelet Satelliting Not Reportable 02/04/21 04:39 Plt Morphology Comment Not Reportable 02/04/21 04:39 RBC Morphology Not Reportable 02/04/21 04:39 Dimorphic RBCs Not Reportable 02/04/21 04:39 Polychromasia Not Reportable 02/04/21 04:39 Hypochromasia 1+ 02/04/21 04:39 Poikilocytosis Not Reportable 02/04/21 04:39 Anisocytosis 2+ 02/04/21 04:39 Microcytosis Not Reportable 02/04/21 04:39 Macrocytosis Not Reportable 02/04/21 04:39 Spherocytes Not Reportable 02/04/21 04:39 Pappenheimer Bodies Not Reportable 02/04/21 04:39 Sickle Cells Not Reportable 02/04/21 04:39 Target Cells Few 02/04/21 04:39 Tear Drop Cells 1+ 02/04/21 04:39 Ovalocytes Rare 02/04/21 04:39 Helmet Cells Not Reportable 02/04/21 04:39 [place] Bodies Not Reportable 02/04/21 04:39 [place] Rings Not Reportable 02/04/21 04:39 Nahomy Cells Not Reportable 02/04/21 04:39 Bite Cells Not Reportable 02/04/21 04:39 Crenated Cell Not Reportable 02/04/21 04:39 Elliptocytes Rare 02/04/21 04:39 Acanthocytes (Spur) Not Reportable 02/04/21 04:39 Rouleaux Not Reportable 02/04/21 04:39 Hemoglobin C Crystals Not Reportable 02/04/21 04:39 Schistocytes Not Reportable 02/04/21 04:39 Malaria parasites Not Reportable 02/04/21 04:39 Percent Retic 0.29 % (0.78-2.58) L 02/04/21 09:12 John Bodies Not Reportable 02/04/21 04:39 Hem Pathologist Commnt Sent 02/04/21 04:39 PT 15.3 Sec. (12.2-14.9) H 02/05/21 05:32 INR 1.09 (0.87-1.13) 02/05/21 05:32 APTT 30.2 Sec. (24.2-36.6) 02/05/21 05:32 Fibrinogen 528 mg/dl (211-480) H 02/04/21 13:00 D-Dimer > 72140 ng/mlDDU (0-234) H 02/02/21 08:00 VBG pH 7.436 (7.320-7.420) H 02/02/21 08:00 Sodium 137 mmol/L (137-145) 02/05/21 05:32 Potassium 3.7 mmol/L (3.6-5.0) 02/05/21 05:32 Chloride 103.4 mmol/L (98-107) 02/05/21 05:32 Carbon Dioxide 19 mmol/L (22-30) L 02/05/21 05:32 Anion Gap 18 mmol/L 02/05/21 05:32 BUN 23 mg/dL (7-17) H 02/05/21 05:32 Creatinine 0.6 mg/dL (0.6-1.2) 02/05/21 05:32 Estimated GFR > 60 ml/min 02/05/21 05:32 BUN/Creatinine Ratio 38 % 02/05/21 05:32 Glucose 269 mg/dL (65-100) H 02/05/21 05:32 POC Glucose 193 mg/dL (70-105) H 02/06/21 07:40 Hemoglobin A1c 7.0 % (4-6) H 02/03/21 09:10 Lactic Acid 1.80 mmol/L (0.7-2.0) 02/02/21 14:07 Uric Acid 3.4 mg/dL (3.5-7.6) L 02/04/21 09:12 Calcium 8.6 mg/dL (8.4-10.2) 02/05/21 05:32 Phosphorus 3.80 mg/dL (2.5-4.5) 02/02/21 08:00 Magnesium 1.60 mg/dL (1.7-2.3) L 02/02/21 08:00 Iron 110 ug/dL (37-170) 02/03/21 09:10 TIBC 155 mcg/dL (250-450) L 02/03/21 09:10 % Saturation 70.97 % 02/03/21 09:10 Transferrin 116 mg/dl (192-382) L 02/03/21 09:10 Ferritin 63234.0 ng/mL (10.0-200.0) H 02/02/21 08:00 Total Bilirubin 0.20 mg/dL (0.1-1.2) 02/04/21 04:39 AST 22 units/L (5-40) 02/04/21 04:39 ALT 12 units/L (7-56) 02/04/21 04:39 Alkaline Phosphatase 184 units/L (35-129) H 02/04/21 04:39 Lactate Dehydrogenase 2476 units/L (91-180) H 02/02/21 08:00 C-Reactive Protein 34.90 mg/dL (0.00-1.30) H 02/02/21 08:00 Total Protein 6.4 g/dL (6.3-8.2) 02/04/21 04:39 Albumin 3.0 g/dL (3.9-5) L 02/04/21 04:39 Albumin/Globulin Ratio 0.9 % 02/04/21 04:39 Triglycerides 182 mg/dL (2-149) H 02/04/21 13:00 Vitamin B12 1032 pg/mL (211-911) H 02/06/21 05:04 Procalcitonin 20.88 ng/mL (<0.15) 02/02/21 08:00 Urine Color Yellow (Yellow) 02/02/21 Unknown Urine Turbidity Clear (Clear) 02/02/21 Unknown Urine pH 5.0 (5.0-7.0) 02/02/21 Unknown Ur Specific [place] 1.018 (1.003-1.030) 02/02/21 Unknown Urine Protein 30 mg/dl mg/dL (Negative) 02/02/21 Unknown Urine Glucose (UA) 150 mg/dL (Negative) 02/02/21 Unknown Urine Ketones Neg mg/dL (Negative) 02/02/21 Unknown Urine Blood Sm (Negative) 02/02/21 Unknown Urine Nitrite Neg (Negative) 02/02/21 Unknown Urine Bilirubin Neg (Negative) 02/02/21 Unknown Urine Urobilinogen < 2.0 mg/dL (<2.0) 02/02/21 Unknown Ur Leukocyte Esterase Neg (Negative) 02/02/21 Unknown Urine WBC (Auto) 5.0 /HPF (0.0-6.0) 02/02/21 Unknown Urine RBC (Auto) 3.0 /HPF (0.0-6.0) 02/02/21 Unknown U Epithel Cells (Auto) < 1.0 /HPF (0-13.0) 02/02/21 Unknown Urine Mucus Few /HPF 02/02/21 Unknown Nasal Screen MRSA (PCR) Negative (Negative) 02/02/21 16:38 Coronavirus (PCR) Negative (Negative) 02/02/21 Unknown HIV 1&2 Antibody Rapid Non react (Non React) 02/04/21 13:00 HIV P24 Antigen Non react (Non React) 02/04/21 13:00 Blood Type A POSITIVE 02/03/21 00:11 Antibody Screen Negative 02/03/21 00:11 Direct Antiglob Test Negative 02/05/21 05:32 JEANNETTE, Poly Interpret Negative 02/05/21 05:32 Crossmatch See Detail 02/03/21 00:11 Microbiology: Microbiology 02/02/21 08:00 Peripheral/Venous Blood Culture - Preliminary NO GROWTH AFTER 72 HOURS 02/02/21 08:00 Peripheral/Venous Blood Culture - Preliminary NO GROWTH AFTER 72 HOURS Padron/IV: Voiding Method Toilet Active Medications - Current Medications Current Medications: Generic Name Dose Route Start Last Admin Trade Name Freq PRN Reason Stop Dose Admin Acetaminophen 650 mg 02/02/21 21:04 02/02/21 22:50 Acetaminophen 325 Mg Tab PO 650 mg Q4H PRN Administration Pain MILD(1-3)/Fever >100.5/GOLDMAN Albuterol 2.5 mg 02/02/21 21:24 Albuterol 2.5 Mg/3 Ml Nebu IH Q3HRT PRN Wheezing Famotidine 20 mg 02/04/21 10:00 02/05/21 21:53 Famotidine 20 Mg Tab PO 20 mg BID MARY LOU Administration Gabapentin 100 mg 02/02/21 22:00 02/05/21 21:53 Gabapentin 100 Mg Cap PO 100 mg BID MARY LOU Administration Insulin Human Lispro 0 unit 02/03/21 09:30 02/05/21 21:54 Insulin Lispro 100 Unit/Ml SUB-Q 3 unit ACHS MARY LOU Administration Protocol Metoclopramide HCl 10 mg 02/02/21 21:05 Metoclopramide 10 Mg/2 Ml Inj IV Q6H PRN Nausea And Vomiting Ondansetron HCl 4 mg 02/02/21 21:04 02/04/21 22:45 Ondansetron 4 Mg/2 Ml Inj IV 4 mg Q3H PRN Administration Nausea And Vomiting Oxycodone/Acetaminophen 1 tab 02/02/21 21:05 Oxycodone /Acetaminophen 5-325mg Tab PO Q6H PRN Pain, Moderate (4-6) Sodium Chloride 10 ml 02/02/21 22:00 02/05/21 21:54 Sodium Chloride 0.9% 10 Ml Flush Syringe IV 10 ml BID MARY LOU Administration Sodium Chloride 10 ml 02/02/21 21:04 Sodium Chloride 0.9% 10 Ml Flush Syringe IV PRN PRN LINE FLUSH Sucralfate 1 gm 02/02/21 22:00 02/05/21 21:52 Sucralfate 1 Gm Tab PO 1 gm ACHS MARY LOU Administration Nutrition/Malnutrition Assess - Dietary Evaluation Nutrition/Malnutrition Findings: Nutrition Notes Start: 02/03/21 11:07 Freq: Status: Active Protocol: Document 02/04/21 10:35 CRISTIAN (Rec: 02/04/21 11:05 CRISTIAN [id number]) Nutrition Notes Initial or Follow up Reassessment Current Diagnosis Diabetes Other Pertinent Diagnosis SIRS, Anemia Current Diet Consistent Carbohydrates and Dietary Supplements (since L 02/04). Labs/Tests 02/04: CO2 18, BUN 18, Glu 400 , Uric ac 3.4, Alk Phos 184, Alb 3.0. Pertinent Medications 02/04: Insulin, others nutritionally unremarkable. Height 5 ft 6 in Weight 106.594 kg [place] Body Weight (kg) 59.09 BMI 37.9 Weight Status Obese Subjective/Other Information RD consult for routine F/U. Change to Consistent Carbohydrates Diet and dietary Supplements TID ordered. Percent of energy/protein needs met: Prescribed Consistent Carbohydrates Diet provides for energy/protein needs (2, 061 Kcal/91 g) during LOS. GI Symptoms None Food Allergy No Skin Integrity/Comment Clear, warm, dry. Minimum of two criteria No #1 Nutrition Diagnosis Inadequate protein-energy intake Etiology Acute illness As Evidenced by Signs and Symptoms Pt reported lack of appetite for 3 months Is patient on ventilator? No Is Patient Ambulatory and/or Out of Bed Yes REE-([place]-ambulatory/OOB) [ [id number] [id number]] Calculation Used for Recommendations Kcal/kg Additional Notes Protein: 1.2-1.5 g/Kg; 71-89 g /day (from IBW+critical care). Fluids: 1 ml/Kcal, or as per MD. Nutrition Intervention Change Diet Order: Continue Consistent Carbohydrates Diet, Add Supplement/Snack (indicate name/kcal 8.1 fl oz Glucerna; TID. /protein ) Provides kCal: 660 Provides Protein (gm) 30 Goal #1 Maintain body weight within +/ -3% of current BWt during LOS. Goal #2 Reach and maintain acceptable chemistry lab values during LOS. Follow-Up By: 02/12/21 Additional Comments Continue monitoring food tolerance, %PO intake of meals , Hydration, and BM.
[2021-02-06] MEDS: SUCRALFATE 1 GM TAB PO SCH ×2 (07:59→12:35)
[2021-02-06] MEDS: INSULIN LISPRO 100 UNIT/ML SUB-Q SCH ×2 (08:34→12:34)
[2021-02-06] MEDS ORDERED: SODIUM CHLORIDE 0.9% 500 ML 500 ML IV NR (09:06)
[2021-02-06] MEDS ORDERED: HYDROmorphone 1 MG/1 ML INJ IV SCH (10:00)
[2021-02-06] MEDS ORDERED: ONDANSETRON 4 MG/2 ML INJ IV SCH (10:00)
[2021-02-06] MEDS ORDERED: LIDOCAINE (1%) 10 MG/1 ML VIAL 20 ML MDV ONE (10:06)
[2021-02-06 10:20] LABS: Hematocrit 27.5 % (30.3-42.9); Hemoglobin 8.9 gm/dl (10.1-14.3); Mean Corpuscular HGB Conc 33 % (30-34); Mean Corpuscular Volume 84 fl (79-97); Red Blood Count 3.27 M/mm3 (3.65-5.03); Red Cell Distribution Width 18.5 % (13.2-15.2)
[2021-02-06 10:23] LABS: Platelet Count 98 K/mm3 (140-440)
[2021-02-06] MEDS ORDERED: HYDROmorphone 1 MG/1 ML INJ IV ONE (10:32)
--- NOTE | 2021-02-06 10:41 | Discharge Summary ---
Providers - Providers Date of Admission: 02/02/21 12:41 Date of discharge: 02/06/21 Attending physician: YADIRA SOTO MD 02/02/21 15:48 Consult to Dietitian/Nutrition [CONS] Stat Physician Instructions: Reason For Exam: Reason for Consult: Poor oral intake 02/03/21 06:11 Consult to Physician [CONS] Routine Comment: Consulting Provider: NERI PRINCE Physician Instructions: Reason For Exam: Severe anemia 02/03/21 10:39 Consult to Physician [CONS] Routine Comment: Consulting Provider: JAJA DOMINGUEZ Physician Instructions: Reason For Exam: fever/ ??SIRS 02/04/21 14:03 Consult to Physician [CONS] Routine Comment: Consulting Provider: AVIS GRAHAM Physician Instructions: Reason For Exam: Anemia 02/04/21 14:37 Consult to Physician [CONS] Routine Comment: Consulting Provider: REED JACKSON Physician Instructions: Reason For Exam: Bone marrow biopsy Primary care physician: INSURANCE COMPLIANCE ANALYST Hospitalization Reason for admission: fever, shortness of breath Condition: Fair Hospital course: Assessment and plan: 60-year-old female with history of diabetes presents with cough intermittent fever and shortness of breath and weakness for 2 weeks. Patient was discharged from [facility] recently. Patient was apparently admitted for urinary tract infection. When EMS arrived fever was higher than 1 and patient was tachycardic with a heart rate of 150s to 160s. Comfortable color sputum. Shortness of breath is intermittent. Patient is not Covid vaccinated. Language barrier present. No chest pain. No loss of taste or smell. In the emergency room patient fever of 100.7. Patient has past medical history significant for GERD anemia and peripheral neuropathy no nausea or vomiting. No hematemesis or melanotic stools. 02/03 awake and alert. Offers no specific complaints. Feels a whole lot better after blood transfusion. She denies any headache or dizziness. Denies chest pain or shortness of breath denies nausea or abdominal pain. Denies melena. Denies using NSAIDs. lab results reviewed. 12 point review of systems is essentially unremarkable except as stated above in the history of present illness Assessment and plan Severe anemia-recurrent Status post PRBC transfusion Posttransfusion hemoglobin 8.6 -down to 7.1 this morning Check stool for occult blood GI consulted and note reviewed and appreciated I discussed over the phone with Dr. Marcelo as patient apparently had an appointment today to see him He recommended peripheral smear to be seen by pathologist,(to rule out hemophagocytosis syndrome), also recommended to check uric acid, haptoglobin and reticulocyte count and SPEP He also is willing to see her once she is discharged SIRS Inflammatory markers reviewed-severely elevated D-dimer, CRP, LDH and ferritin Procalcitonin is markedly elevated Tested negative for COVID-19 CTA chest negative for PE Chest x-ray reviewed We will check venous Doppler of lower extremities due to markedly elevated D- dimer We will discontinue Decadron as patient is not hypoxic We will also discontinue neb treatments as the patient denies any shortness of breath Type 2 diabetes A1c A1C 7.0 Patient came from [facility] to this country about 2 months ago States she has not taken any diabetes medicine since she came here cont. insulin sliding scale coverage Fever/tachycardia/-improved She has been afebrile since yesterday Heart rate has improved Chest x-ray reviewed CTA chest reviewed Unclear etiology Rule out viral syndrome ID consulted -evaluation pending DVT prophylaxis We will discontinue subcu heparin as the platelets are trending down SCDs 02/05: Patient seen and examined, Still with some shortness of breath and today Complains right shoulder pain. Will obtain Xray, encourage ambulation, Obtain document if any from family about prior transfusion. She will need Insulin on discharge Awaiting Bone Marrow biopsy PER Pts Daughter She had two units Transfusion Transfusion at [facility] they were unsure as to where the source of her blood loss was coming from.. She unfortunately was not able to make an appointment that was set up for her. Anticipate discharge in a.m if no further transfusion is required she will definitely need outpatient follow-up with home appraiser to follow through with all the outpatient work-up she is clinically stable at this time. 02/06: Patient can be discharged home after bone biopsy. She will be discharged home with prescriptions for novolin 70/30 20 units twice daily, carafate, and gabapentin. Contact information for the infectious disease and hematology doctor who saw her at our hospital will be given in this discharge summary. Daughter, DOROTHY, was called and updated and instructions given to create follow up appointments to go over the results of the patient's tests here in the hospital. They were advised to follow up with a primary care doctor lina. Disposition: 01 HOME / SELF CARE / HOMELESS Final Discharge Diagnosis (Prints w/discharge instructions): Anemia Time spent for discharge: 35 Core Measure Documentation - Palliative Care Palliative Care/ Comfort Measures: Not Applicable - Core Measures Any of the following diagnoses?: none Exam - Physical Exam Narrative exam: - Physical exam Narrative exam: General appearance: Present: no acute distress - EENT Eyes: PERRL, EOM intact ENT: hearing intact, clear oral mucosa - Neck Neck: supple, normal ROM - Respiratory Respiratory effort: normal Respiratory: bilateral: CTA - Cardiovascular Rhythm: regular Heart Sounds: Present: S1 & S2 Extremities: non pitting edema - Gastrointestinal General gastrointestinal: Present: soft, non-tender Rectal Exam: deferred - Integumentary Integumentary: clear - Musculoskeletal Musculoskeletal: strength equal bilaterally - Neurologic Neurologic: no focal deficits - Psychiatric Psychiatric: appropriate mood/affect - Constitutional Vitals: Temp Pulse Resp BP Pulse Ox 98.1 F 57 L 18 136/63 96 02/06/21 05:39 02/06/21 05:39 02/06/21 05:39 02/06/21 05:39 02/06/21 05:39 Plan Follow up with: PRIMARY MD SHIREEN [Primary Care Provider] - 7 Days AVIS GRAHAM MD [Staff Physician] - 7 Days JAJA DOMINGUEZ MD [Staff Physician] - 7 Days Prescriptions: Sucralfate [Carafate] 1 gm PO ACHS 30 Days #120 tablet Gabapentin 100 mg PO BID 30 Days #60 cap Insulin Aspart Prot/Insuln Asp [Insulin Aspart Prot-Insuln Asp] 20 unit SQ BID 30 Days #3 vial Other Discharge Orders: Glucometer (Amb) Location: None Selected Glucometer supplies[Amb] Location: None Selected
--- NOTE | 2021-02-06 12:21 | Progress Note ---
Assessment and Plan Cultures: 02/02/2021 blood culture: No growth 02/02/2021 urine culture: No growth COVID-19 PCR: Negative MRSA nasal PCR: Negative HIV negative. A/P: 60-year-old female with diabetes mellitus from [facility] with: #Recurrent fever syndrome: Recent hospitalization at [facility] with pyelonephritis, treated with empiric antibiotics. UA without pyuria, no leukocytosis here, labs revealed severe anemia as well as thrombocytopenia. In addition, CRP, procalcitonin are high, ferritin is extremely elevated at 17K. ?HLH. Due to being from [facility], she did get a malaria smear done at [facility] which was negative. CT abdomen pelvis with IV contrast here showed hepatomegaly. Hematology following, underwent BMBx. HIV negative. Triglycerides 182. Fibrinogen 528. Repeat ferritin down to 4204. #Elevated d-dimer #Uncontrolled diabetes Recs: -F/U malaria antigen, EBV, CMV serologies -f/u soluble IL-2 receptor. Triglycerides 182. Fibrinogen 528. Repeat ferritin down to 4204. -f/u bone marrow biopsy results with hematology and PCP -ID clinic follow up PRN, contact info given to patient Will sign off. Please call with questions. Martina Krishnan MD, FACP, [facility] ([facility] O: [phone] F: [phone] Subjective Date of service: 02/06/21 Interval history: Underwent bone marrow biopsy. No fever. Plan for discharge with outpatient follow-up. Objective - Exam Narrative Exam: Physical Exam: Constitutional: Alert, cooperative. No acute distress Head, Ears, Nose: Normocephalic, atraumatic. External ears, nose normal Eyes: Conjunctivae/corneas clear. No icterus. No ptosis. Neck: Supple, no meningeal signs Cardiovascular: S1, S2 + Respiratory: Good air entry, clear to auscultation bilaterally GI: Soft, non-tender; bowel sounds normal. No peritoneal signs Musculoskeletal: No pedal edema, no cyanosis. Skin: No rash or abscess Hem/Lymphatic: No palpable cervical or supraclavicular nodes. No lymphangitis Psych: Mood ok. Affect normal Neurological: Awake, alert, oriented. No gross abnormality - Constitutional Vitals: Vital Signs Temp Pulse Resp BP Pulse Ox 97.6 F 97 H 16 155/63 100 02/06/21 10:50 02/06/21 11:20 02/06/21 11:20 02/06/21 11:20 02/06/21 11:20 Temperature -Last 24 Hours Temperature [Post-Procedure] 97.6 F Temperature [Pre-Procedure] 97.7 F Temperature 98.1 F Temperature 99.1 F Temperature 99.1 F Temperature 99.1 F Temperature 98.5 F Temperature 98.2 F Temperature 98.5 F Temperature 98.5 F Temperature 98.0 F Temperature 98.0 F Temperature 97.9 F Temperature 97.9 F Temperature 97.9 F - Labs CBC & Chem 7: 02/06/21 06:55 02/05/21 05:32 Labs: Abnormal lab results 02/03/21 02/04/21 02/05/21 Range/Units 00:11 09:12 12:17 RBC (3.65-5.03) M/mm3 Hgb (10.1-14.3) gm/dl Hct (30.3-42.9) % MCH (28-32) pg RDW (13.2-15.2) % Plt Count (140-440) K/mm3 Haptoglobin 619 H (43-212) mg/dL POC Glucose 140 H (70-105) mg/dL Ferritin (10.0-200.0) ng/mL Vitamin B12 (211-911) pg/mL Crossmatch See Detail 02/05/21 02/06/21 02/06/21 Range/Units 21:47 05:04 05:04 RBC (3.65-5.03) M/mm3 Hgb (10.1-14.3) gm/dl Hct (30.3-42.9) % MCH (28-32) pg RDW (13.2-15.2) % Plt Count (140-440) K/mm3 Haptoglobin (43-212) mg/dL POC Glucose 167 H (70-105) mg/dL Ferritin 4204.0 H (10.0-200.0) ng/mL Vitamin B12 1032 H (211-911) pg/mL Crossmatch 02/06/21 02/06/21 02/06/21 Range/Units 06:55 07:40 11:31 RBC 3.27 L (3.65-5.03) M/mm3 Hgb 8.9 L (10.1-14.3) gm/dl Hct 27.5 L (30.3-42.9) % MCH 27 L (28-32) pg RDW 18.5 H (13.2-15.2) % Plt Count 98 L (140-440) K/mm3 Haptoglobin (43-212) mg/dL POC Glucose 193 H 228 H (70-105) mg/dL Ferritin (10.0-200.0) ng/mL Vitamin B12 (211-911) pg/mL Crossmatch
[2021-02-06] MEDS: FAMOTIDINE 20 MG TAB PO SCH (12:34)
[2021-02-06] MEDS: GABAPENTIN 100 MG CAP PO SCH (12:34)
[2021-02-06 13:28] VITALS: BP 153/71
--- NOTE | 2021-02-06 13:52 | Cat Scan Report ---
CT-GUIDED BONE MARROW ASPIRATION AND BIOPSY INDICATION : Severe anemia PROCEDURE: The risks (including but not limited to bleeding and infection) and benefits were explain ed to the patient and informed consent was obtained. All CT examinations performed at this facility utilize dose modulation, iterative reconstruction or weight-based dosing, when appropriate, to reduce radiation dose to as low as reasonably achievable. A time out procedure was performed. The procedu re site was prepped and draped in the usual sterile fashion and lidocaine was used for local anesthes ia. Under CT guidance, the right posterior iliac wing was selected for biopsy. An 11 gauge needle was ad vanced to the posterior margin of the iliac wing, cortex breached, and 4.5 mL bone marrow aspirate ob tained. The needle was then advanced and a bone marrow biopsy was obtained measuring approximately 2 cm. Samples were given directly to the anatomic pathology manager who was present during the exam. The patient tolerated the procedure well with no complications. IMPRESSION: Technically successful bone marrow aspirate and biopsy. Signer Name: Trino Gaytan Jr, MD Signed: 02/06/2021 1:48 PM Workstation Name: [id number]
[2021-02-06 17:33] LABS: Albumin 2.5 g/dL (3.8-4.8); Gamma Globulin 0.7 g/dL (0.8-1.7)
== END 2021-02-06 17:05 | disposition home or self-care (01) | DRG 811 ==
LOC: ED 07:45 → 3A 12:41
PROVIDERS: ADMIT Internal Medicine; ATTEND Internal Medicine
PROC: 30233N1 Transfusion of Nonautologous Red Blood Cells into Peripheral Vein, Percutaneous Approach (ICD-10-PCS; principal; 2021-02-03)
PROC: 07DR3ZX Extraction of Iliac Bone Marrow, Percutaneous Approach, Diagnostic (ICD-10-PCS; 2021-02-06)
DX: D64.9 Anemia, unspecified (principal); J18.9 Pneumonia, unspecified organism; R65.10 Systemic inflammatory response syndrome (SIRS) of non-infectious origin without acute organ dysfunction; Z20.822 Contact with and (suspected) exposure to COVID-19; E11.9 Type 2 diabetes mellitus without complications; D69.6 Thrombocytopenia, unspecified
CPT/HCPCS: 36415; 38221; 71045; 71275; 74177; 77012; 80048; 80053; 81001; 82140; 82607; 82728; 82747; 82805; 82947; 82962; 83010; 83036; 83550; 83615; 83735; 84100; 84145; 84165; 84478; 84550; 85007; 85025; 85027; 85045; 85097; 85379; 85384; 85610; 85730; 86140; 86644; 86645; 86665; 86850; 86880; 86900; 86901; 86920; 87040; 87086; 87207; 87641; 87806; 88161; 88305; 88311; 88313; 93970; 94640; G0378; J3490; Q0162; Q9967; J0456; J0692; J0696; J1100; J1170; J1644; J1815; J2405; J2765; J3370; J3475; J7030; J7040; P9016; U0003